=== PATIENT | male | born 1950 | race African-American/Black ===

== ENCOUNTER 2021-05-30 12:28 | Outpatient (REF) | payer SELFPAY ==
[2021-05-30 14:06] LABS: MANUAL DIFF FLAG NO
[2021-05-30 14:22] LABS: Basophils Percent Auto 0.3 % (0-2); Eosinophils Absolute Auto 0.1 X10*3/uL (0.0-0.4); Eosinophils Percent Auto 0.9 % (0-4); Hematocrit 45.1 % (42-52); Hemoglobin 13.2 g/dl (14.0-18.0); Imm Gran Abs Auto 0.01 X10*3/uL (0.00-0.03); Imm Gran Pct Auto 0.2 % (0.0-0.4); Lymphocytes Absolute Auto 3.7 X10*3/uL (1.2-4.9); Lymphocytes Percent Auto 56.3 % (20-40); Mean Corpuscular HGB Conc 29.3 g/dl (31.0-36.0); Mean Corpuscular Hemoglobin 22.6 pg (27.0-33.0); Mean Corpuscular Volume 77.1 fL (80-98); Mean Platelet Volume 11.7 fL (9.4-12.4); Monocytes Absolute Auto 0.6 X10*3/uL (0.1-1.2); Monocytes Percent Auto 8.3 % (2-11); Neutrophils Absolute Auto 2.3 X10*3/uL (2.0-8.3); Platelet Count 231 X10*3/uL (160-400); Red Blood Count 5.85 X10*6/uL (4.60-5.80); White Blood Count 6.6 X10*3/uL (4.8-10.8)
[2021-05-30 14:44] LABS: Creatinine Urine 219.63 mg/dL; Creatinine Urine 219.75 mg/dL; Microalbum/Creatinine Ratio Ur 18.6 ug/mg cr; Protein/Creatinine Ratio, Ur 0.08 (<0.2); Total Protein Urine Random 18 mg/dL (<12)
[2021-05-30 14:46] LABS: Alanine Aminotransferase 25 U/L (0-40); Albumin Level 4.3 g/dL (3.5-5.0); Alkaline Phosphatase 87 U/L (39-117); Anion Gap 13 (12-20); Aspartate Amino Transferase 21 U/L (5-37); Bilirubin Total 0.6 mg/dL (0.0-1.0); Blood Urea Nitrogen 13 mg/dL (9-16); Calcium 10.4 mg/dL (8.4-10.2); Carbon Dioxide 29 mmol/L (22-29); Chloride 103 mmol/L (96-108); Cholesterol 108 mg/dL; Estimated Glomerular Filt Rate 56; Glucose Fasting 104 mg/dL (60-99); HDL Cholesterol 34 mg/dL; LDL Cholesterol Calculated 63 mg/dl; Potassium 3.6 mmol/L (3.3-5.1); Sodium 141 mmol/L (135-145); Total Protein 7.7 g/dL (6.5-8.0); Triglycerides 56 mg/dL
== END 2021-05-30 12:29 | disposition home or self-care (01) ==
LOC: HO.HMGCLDS 12:28
PROVIDERS: Hospitalist; Visit Provider Internal Medicine
DX: E11.65 Type 2 diabetes mellitus with hyperglycemia (principal); I10 Essential (primary) hypertension
CPT/HCPCS: 36415; 80053; 80061; 82043; 84156; 85025

== ENCOUNTER 2022-05-30 10:18 | Outpatient (REF) | payer MEDICAID, SELFPAY ==
[2022-05-30 11:50] LABS: Estimated Average Glucose 209 mg/dL; Hemoglobin A1c % 8.9 %
[2022-05-30 12:00] LABS: Microalbum/Creatinine Ratio Ur 33.8 ug/mg cr
[2022-05-30 12:07] LABS: Alanine Aminotransferase 33 U/L (0-40); Anion Gap 10 (12-20); Aspartate Amino Transferase 21 U/L (5-37); Blood Urea Nitrogen 15 mg/dL (9-16); Carbon Dioxide 26 mmol/L (22-29); Chloride 106 mmol/L (96-108); Cholesterol 124 mg/dL; Estimated Glomerular Filt Rate > 60; Glucose Fasting 91 mg/dL (60-99); HDL Cholesterol 42 mg/dL; LDL Cholesterol Calculated 70 mg/dl; Potassium 4.4 mmol/L (3.3-5.1); Sodium 138 mmol/L (135-145); Triglycerides 62 mg/dL
== END 2022-05-30 10:19 | disposition home or self-care (01) ==
LOC: HO.HMGCLDS 10:18
PROVIDERS: Visit Provider Internal Medicine
DX: I10 Essential (primary) hypertension (principal); E11.65 Type 2 diabetes mellitus with hyperglycemia
CPT/HCPCS: 36415; 80048; 80061; 82043; 83036; 84450; 84460

== ENCOUNTER 2022-07-08 08:15 | Outpatient (REF) | payer MEDICAID, SELFPAY ==
[2022-07-08 11:21] LABS: MANUAL DIFF FLAG NO
[2022-07-08 11:28] LABS: Basophils Percent Auto 0.2 % (0-2); Eosinophils Percent Auto 0.3 % (0-4); Hematocrit 44.7 % (42.0-52.0); Hemoglobin 13.2 g/dl (14.0-18.0); Imm Gran Abs Auto 0.01 X10*3/uL (0.00-0.03); Imm Gran Pct Auto 0.2 % (0.0-0.4); Lymphocytes Percent Auto 46.9 % (20-40); Mean Corpuscular HGB Conc 29.5 g/dl (31.0-36.0); Mean Corpuscular Hemoglobin 22.6 pg (27.0-33.0); Mean Corpuscular Volume 76.5 fL (80.0-98.0); Mean Platelet Volume 12.5 fL (9.4-12.4); Monocytes Absolute Auto 0.4 X10*3/uL (0.1-1.2); Monocytes Percent Auto 6.2 % (2-11); Neutrophils Percent Auto 46.2 % (45-73); Platelet Count 216 X10*3/uL (160-400); Red Blood Count 5.84 X10*6/uL (4.60-5.80); Red Cell Distribution Width 13.7 % (11.0-16.0); White Blood Count 6.5 X10*3/uL (4.8-10.8)
[2022-07-08 11:49] LABS: Estimated Average Glucose 217 mg/dL; Hemoglobin A1c % 9.2 %
[2022-07-08 12:32] LABS: Creatinine Urine 146.97 mg/dL; Microalbum/Creatinine Ratio Ur 12.9 ug/mg cr
[2022-07-08 12:55] LABS: Alanine Aminotransferase 21 U/L (0-40); Albumin Level 4.4 g/dL (3.5-5.0); Alkaline Phosphatase 90 U/L (39-117); Anion Gap 13 (12-20); Aspartate Amino Transferase 19 U/L (5-37); Bilirubin Total 0.5 mg/dL (0.0-1.0); Blood Urea Nitrogen 12 mg/dL (9-16); Calcium 10.7 mg/dL (8.4-10.2); Carbon Dioxide 26 mmol/L (22-29); Chloride 103 mmol/L (96-108); Cholesterol 118 mg/dL; Estimated Glomerular Filt Rate 56; Glucose Fasting 44 mg/dL (60-99); HDL Cholesterol 42 mg/dL; LDL Cholesterol Calculated 69 mg/dl; Potassium 3.8 mmol/L (3.3-5.1); Sodium 138 mmol/L (135-145); Total Protein 7.7 g/dL (6.5-8.0); Triglycerides 35 mg/dL
== END 2022-07-08 08:16 | disposition home or self-care (01) ==
LOC: HO.HMGCLDS 08:15
PROVIDERS: PCP Internal Medicine; Visit Provider Internal Medicine
DX: E11.65 Type 2 diabetes mellitus with hyperglycemia (principal); I10 Essential (primary) hypertension
CPT/HCPCS: 36415; 80053; 80061; 82043; 83036; 85025

== ENCOUNTER 2022-07-09 11:21 | Outpatient (REF) | payer MEDICAID, SELFPAY ==
[2022-07-10 16:13] LABS: Calcium (PTHI) 10.4 mg/dL (8.6-10.3); PTHI 74 pg/mL (16-77)
[2022-07-13 19:48] LABS: Calcium, Ionized 5.4 mg/dL (4.8-5.6)
== END 2022-07-09 11:22 | disposition home or self-care (01) ==
LOC: HO.HMGCLDS 11:21
PROVIDERS: PCP Internal Medicine; Visit Provider Internal Medicine
DX: E83.52 Hypercalcemia (principal)
CPT/HCPCS: 36415; 82330; 83970

== ENCOUNTER → 2022-11-25 08:25 | Outpatient (BNVA) | payer MEDICAID, SELFPAY | PROVIDERS: PCP Internal Medicine; Visit Provider Internal Medicine Endocrinology, Diabetes & Metabolism | DX: E11.65 Type 2 diabetes mellitus with hyperglycemia (principal); Z79.84 Long term (current) use of oral hypoglycemic drugs | CPT/HCPCS: 82947; 99202 ==

== ENCOUNTER 2022-11-27 09:09 | Outpatient (REF) | payer MEDICAID, SELFPAY ==
[2022-11-27 11:12] LABS: MANUAL DIFF FLAG NO
[2022-11-27 11:18] LABS: Basophils Percent Auto 0.2 % (0-2); Eosinophils Percent Auto 0.2 % (0-4); Hematocrit 46.7 % (42.0-52.0); Hemoglobin 13.5 g/dl (14.0-18.0); Imm Gran Abs Auto 0.04 X10*3/uL (0.00-0.03); Imm Gran Pct Auto 0.4 % (0.0-0.4); Lymphocytes Absolute Auto 1.8 X10*3/uL (1.2-4.9); Lymphocytes Percent Auto 19.6 % (20-40); Mean Corpuscular HGB Conc 28.9 g/dl (31.0-36.0); Mean Corpuscular Hemoglobin 22.4 pg (27.0-33.0); Mean Corpuscular Volume 77.3 fL (80.0-98.0); Mean Platelet Volume 11.3 fL (9.4-12.4); Monocytes Absolute Auto 0.5 X10*3/uL (0.1-1.2); Monocytes Percent Auto 5.3 % (2-11); Neutrophils Percent Auto 74.3 % (45-73); Platelet Count 256 X10*3/uL (160-400); Red Blood Count 6.04 X10*6/uL (4.60-5.80); Red Cell Distribution Width 14.4 % (11.0-16.0); White Blood Count 9.4 X10*3/uL (4.8-10.8)
[2022-11-27 13:25] LABS: Alanine Aminotransferase 26 U/L (0-40); Anion Gap 10 (12-20); Aspartate Amino Transferase 20 U/L (5-37); Blood Urea Nitrogen 15 mg/dL (9-16); Calcium 10.9 mg/dL (8.4-10.2); Carbon Dioxide 26 mmol/L (22-29); Chloride 106 mmol/L (96-108); Cholesterol 101 mg/dL; Estimated Glomerular Filt Rate 60; Glucose Fasting 38 mg/dL (60-99); HDL Cholesterol 36 mg/dL; Iron 61 mcg/dL (45-160); LDL Cholesterol Calculated 54 mg/dl; Percent Iron Saturation 20 % (15-50); Potassium 3.7 mmol/L (3.3-5.1); Sodium 138 mmol/L (135-145); Total Iron Binding Capacity 309 mcg/dL (228-428); Triglycerides 59 mg/dL; Unsaturated Iron Binding 248 ug/dL
[2022-11-27 13:38] LABS: PSA,Total (Free>4and<10) 2.24 ng/mL (0.00-4.00); Vitamin D 25-OH Total 18.6 ng/mL (>30)
[2022-11-27 17:24] LABS: Creatinine Urine 109.53 mg/dL
== END 2022-11-27 09:10 | disposition home or self-care (01) ==
LOC: HO.HMGCLDS 09:09
PROVIDERS: PCP Internal Medicine; Visit Provider Internal Medicine
DX: I10 Essential (primary) hypertension (principal); E11.65 Type 2 diabetes mellitus with hyperglycemia; E11.40 Type 2 diabetes mellitus with diabetic neuropathy, unspecified; N52.9 Male erectile dysfunction, unspecified; Z12.5 Encounter for screening for malignant neoplasm of prostate
CPT/HCPCS: 36415; 80048; 80061; 82043; 82306; 83540; 84153; 84450; 84460; 85025

== ENCOUNTER → 2022-12-16 08:57 | Outpatient (BNVA) | payer MEDICAID, SELFPAY | PROVIDERS: PCP Internal Medicine; Visit Provider Dietitian, Registered | DX: E11.65 Type 2 diabetes mellitus with hyperglycemia (principal); Z71.3 Dietary counseling and surveillance | CPT/HCPCS: 97802 ==

== ENCOUNTER 2022-12-23 10:36 | Outpatient (REF) | payer MEDICAID, SELFPAY ==
[2022-12-23 12:14] LABS: Estimated Average Glucose 180 mg/dL; Hemoglobin A1c % 7.9 %
[2022-12-24 11:49] LABS: Calcium (PTHI) 9.9 mg/dL (8.6-10.3); PTHI 87 pg/mL (16-77)
[2022-12-25 15:03] LABS: Calcium, Ionized 5.5 mg/dL (4.8-5.6)
== END 2022-12-23 10:37 | disposition home or self-care (01) ==
LOC: HO.HMGCLDS 10:36
PROVIDERS: PCP Internal Medicine; Visit Provider Internal Medicine
DX: E83.52 Hypercalcemia (principal); E11.40 Type 2 diabetes mellitus with diabetic neuropathy, unspecified; E11.65 Type 2 diabetes mellitus with hyperglycemia; I10 Essential (primary) hypertension
CPT/HCPCS: 36415; 82330; 83036; 83970

== ENCOUNTER 2023-01-29 13:32 | Outpatient (REF) | payer MEDICAID, SELFPAY ==
--- NOTE | 2023-01-29 10:15 | EMG_ITS ---
Right tibial and peroneal motor studies were performed right superficial peroneal, sural and medial lateral plantar sensory studies were performed. Tibial H-reflex was obtained. Needle examination was performed. IMPRESSION: Mild sensory motor chronic peripheral neuropathy. MD DEMETRA Arroyo/YISEL / [id number]
== END 2023-01-29 13:33 | disposition home or self-care (01) ==
LOC: HO.NEURO 13:32
PROVIDERS: PCP Internal Medicine; Visit Provider Internal Medicine
DX: R20.8 Other disturbances of skin sensation (principal)
CPT/HCPCS: 95886; 95910

== ENCOUNTER 2023-02-04 10:23 | Outpatient (REF) | payer MEDICAID, SELFPAY ==
--- NOTE | ~2023-02-04 | US_ITS ---
EXAMINATION: NONINVASIVE ASSESSMENT OF THE ARTERIES OF RIGHT LOWER EXTREMITY Ross Antony MD CLINICAL INFORMATION: Other disturbances of skin sensation TECHNIQUE: Right lower extremity duplex ultrasound was performed with velocity measurements and waveform analysis in the common femoral arteries, profunda femoris arteries, proximal mid and distal superficial femoral arteries, popliteal arteries and tibial vessels. This study was performed only at rest. COMPARISON: None FINDINGS: Velocities in cm/sec and phasicity as well as the presence of plaque are reported below. RIGHT LEG: Minimal plaque is seen with the exception of the tibial vessels were moderate is identified. Multiphasic flow is noted throughout the lower extremity Common Femoral: 104 Profunda Femoris: 61 Proximal SFA: 1:15 Mid SFA: 90 Distal SFA: 70 Popliteal: 74 Tibial: 88 US/US arterial duplex LE RT IMPRESSION: There is no evidence of any hemodynamically significant lower extremity arterial disease by pressure, waveform or duplex Doppler criteria at rest.
--- NOTE | 2023-02-04 11:16 | CA_ITS ---
Transthoracic Echocardiogram Patient (Last, First, Middle): Martin Whittaker O Gender: Male Date of : 1950 Age: 72 Procedure Date: 02/04/2023 Procedure Type: Transthoracic Echocardiogram Location: OP Height: 167.64 cm Weight: 75.3 kg BSA: 1.85 m2 Heart Rate: 88 bpm BP: 175 / 90 mmHg Pharmacy Operations Manager: ROXANN Referring MD: Atiya Joseph MD Embedder: Preston Crowder MD Symptoms: R01.1 - Cardiac murmur, unspecified Study Quality: Adequate ECG Rhythm: Sinus Conclusions: - 1. Normal LV systolic function with moderate LVH with impaired relaxation filling pattern 2. Normal cardiac valvular Doppler 3. Normal RV systolic pressure 4. No gross pericardial effusion Findings Left Ventricle Normal left ventricular size and systolic function. There is moderately increased left ventricular wall thickness. The visually estimated ejection fraction is between 55-60%. Spectral Doppler is indicative of an impaired relaxation filling pattern. E/E prime ratio is between 8 and 15 consistent with indeterminate filling pressures. Peak GLS is -10.9%, which is significantly reduced. Right Ventricle Normal right ventricular cavity size and systolic function. Atria The left atrium is normal in size. Interatrial shunt cannot be excluded. The right atrium is normal in size. Aortic Valve Normal aortic valve structure and function. There is no aortic valve stenosis. There is no aortic valve regurgitation. Mitral Valve Normal mitral valve structure and function. There is trace mitral valve regurgitation. There is no mitral valve stenosis. Pulmonic Valve The pulmonic valve was not well visualized. Tricuspid Valve Normal tricuspid valve structure. There is trace tricuspid valve regurgitation. The right ventricular systolic pressure is normal. The right ventricular systolic pressure is 18 mmHg. Normal right atrial pressure. There is no evidence of pulmonary hypertension. Great Vessels All visible segments of the aorta are normal in size. The pulmonary artery was not well visualized. Venous The inferior vena cava is normal in size and collapses greater than 50% with inspiration. Pericardium/Pleural There is no evidence of pericardial effusion. Prior Study Comparison No prior study available for comparison. Measurements 2D Linear Measurements IVSd: 1.41 0.6-0.9/0.6-1.0 cm LVIDd: 3.42 3.9-5.3/4.2-5.9 cm LVIDd Index: 1.85 2.4-3.2/2.2-3.1 cm/m2 LVIDs: 2.36 2.0-3.6 cm LVPWd: 1.43 0.7-1.1 cm LA Diam: 3.40 2.7-3.8/3.0-4.0 cm LAIDs Index: 1.84 1.5-2.3 cm/m2 LV Mass: 213.53 67-162/88-224 g LV Mass Index: 115.42 43-95/49-115 g/m2 LVOT Diam: 1.90 3.0+(-)1.3 cm 2D Systolic Function EF 4C: 54.20 >55% EF 2C: 60.40 >55% EF BiP: 57.40 >55% Mitral Valve MV Pk E: 0.63 MV PK A: 1.16 MV Decel Time: 320.00 E/A: 0.50 E'Lateral: 5.33 E'Medial: 3.59 E/E' Med: 17.50 E/E' Lat: 11.80 PHT: 94.00 MVA PHT: 2.34 Decel Hart: 1.97 Aortic Valve AoV Pk Pa: 1.44 AoV Mn Pa: 0.99 AoV VTI: 0.23 AoV Pk Grad: 8.00 Aov Mn Grad: 5.00 MERLY Cont.VTI: 2.74 LVOT LVOT Pk Pa: 1.37 LVOT Mn Pa: 0.94 LVOT VTI: 0.23 LVOT Pk Grad: 8.00 LVOT Mn Grad: 4.00 LVOT Diam: 1.90 LVOT Area: 2.84 Diastolic Function MV Pk E: 0.63 MV Pk A: 1.16 E/A: 0.50 E'Medial: 3.59 E/E' Med: 17.50 E' Laterial: 5.33 E/E' Lat: 11.80 Right Ventricle TAPSE (mm): 23.20 TVS' Pa: 15.00 Tricuspid Valve TR Pk Pa: 1.95 TR Pk Grad: 15.00 RA Press: 3.00 RVSP: 18.00 Great Vessels Aorta Sinus of Valsalva: 3.00 2.0-3.5 cm Ao Asc: 3.10 2.1-3.4 cm Pulmonary Valve PV Pk Pa: 1.44 Peak PV Grad: 8.00 Updated in Other Vendor System with Status of Final Preston Crowder MD electronically signed on 02/04/2023 1:41:08 PM with status of Final
== END 2023-02-04 10:24 | disposition home or self-care (01) ==
LOC: HO.US 10:23
PROVIDERS: PCP Internal Medicine; Visit Provider Internal Medicine
DX: R01.1 Cardiac murmur, unspecified (principal); I10 Essential (primary) hypertension; R20.8 Other disturbances of skin sensation
CPT/HCPCS: 93306; 93356; 93926

== ENCOUNTER 2023-02-08 07:03 | Emergency (ER) | payer MEDICAID, SELFPAY ==
--- NOTE | ~2023-02-08 | US_ITS ---
EXAMINATION: US VENOUS ULTRASOUND WITH DOPPLER LOWER EXTREMITY, RIGHT CLINICAL INFORMATION: Pain. COMPARISON: None available. TECHNIQUE: Ultrasound of the deep veins is performed from the hip to the calf with compression sonography and color and pulse Doppler assessment. Spectral analysis with color-flow imaging is performed. FINDINGS: There is normal venous compression and respiratory variation and augmented flow. The visualized common femoral vein, superficial femoral vein, profunda femoral vein, popliteal vein, and the trifurcation region shows no evidence of deep venous thrombosis. There is no significant popliteal fossa cyst. If the patient's symptoms persist, followup ultrasound in 5 days 7 days might be of value to exclude proximal propagation from a non-visualized calf vein. US/US venous duplex LE RT IMPRESSION: No DVT demonstrated in the right lower extremity.
[2023-02-08 07:42] VITALS: BP 185/88; PULSE 96; RESP 16; TEMP 36.8; O2SAT 99; BMI 26.8
--- NOTE | 2023-02-08 08:29 | ED_ITS ---
HPI - Extremity Problem General Chief complaint: Extremity Problem Stated complaint: R leg pain Time Seen by Provider: 02/08/23 08:14 Source: patient Mode of arrival: ambulatory Limitations: no limitations History of Present Illness HPI Narrative: A 72-year-old male came in for evaluation of right lower extremities pain. Pain started 6 weeks ago, no history of trauma injury to the right lower extremities, been evaluated for right lower extremity pain feels heat inside, patient declined any recent travel, no prolonged immobilization, Related Data Previous Rx's Medication Instructions Recorded glipizide 10 mg tablet 10 mg PO BID 30 days #180 tabs 11/06/22 metformin 1,000 mg tablet 1,000 mg PO BID #180 tabs 11/06/22 sitagliptin phosphate 100 mg 100 mg PO DAILY #90 tabs 11/06/22 tablet (Januvia) lisinopril 20 mg tablet 20 mg PO DAILY #90 tabs 11/14/22 amlodipine 5 mg tablet 5 mg PO DAILY #90 tabs 11/28/22 blood sugar diagnostic (FreeStyle #200 ea 12/05/22 Lite Strips) blood-glucose meter (FreeStyle #1 ea 12/05/22 [place] Lite kit) lancets 28 gauge (FreeStyle #200 ea 12/05/22 Lancets) blood pressure test kit-medium #1 ea 01/15/23 gabapentin 300 mg capsule 300 mg PO Q8H #90 caps 01/20/23 oxycodone 5 mg tablet 5 mg PO Q8H PRN pain #10 tabs 02/08/23 Allergies Allergy/AdvReac Type Severity Reaction Status Date / Time No Known Allergies Allergy Verified 12/23/22 10:19 Review of Systems Review of Systems: All other systems are reviewed and are negative Constitutional: Reports as per HPI and Reports no additional constitutional complaints Eyes: Reports as per HPI and Reports no additional eye complaints Reports system reviewed and no additional complaints, except as documented Cardiovascular: Reports as per HPI and Reports no additional cardiovascular complaints Respiratory: Reports as per HPI and Reports no additional respiratory complaints Gastrointestinal: Reports as per HPI and Reports no additional gastrointestinal complaints Genitourinary: Reports no additional female genitourinary complaints Musculoskeletal: Reports no additional musculoskeletal complaints Skin/Breast: Reports system reviewed and no additional complaints, except as docu Psychiatric: Reports no additional psychiatric complaints Endocrine: Reports no additional endocrine complaints Hematologic/Lymphatic: Reports no additional hematologic/lymphatic complaints Allergic/Immunologic: Reports no additional allergic/immunologic complaints Reports system reviewed and no additional complaints, except as documented and Reports Abnormal speech present [facility] Past Medical History Medical History Burning sensation of toe and foot Diabetes mellitus with hyperglycemia, without long-term current use of insulin Essential hypertension Hypercalcemia Normocalcemic primary hyperparathyroidism Severe uncontrolled hypertension Type 2 diabetes mellitus without complication, with no history of insulin use Surgical History No pertinent past surgical history Social History Social History Housing: Apartment Alcohol intake: never Patient Tobacco Use Status: Never used Tobacco e-Cigarette/Vaping Use: Never Used Second Hand Smoke Exposure: No Advance Directives: No Advance Directives Information Provided: No service: No Current occupational status: employed Cognitive needs: No Hearing needs: No Vision needs: No Physical Exam Vital Signs: Vital Signs: Last Vital Signs Temp 98.2 F 02/08/23 07:42 Pulse 96 02/08/23 07:42 Resp 16 02/08/23 07:42 BP 185/88 H 02/08/23 07:42 Pulse Ox 99 02/08/23 07:42 O2 Del Method Room Air 02/08/23 07:42 BMI result Body Mass Index 26.8 Vital signs have been reviewed as appeared to be correct. Blood pressure normal. Heart rate normal. Respiration rate normal. Temperature normal. Ox ygen saturation normal. Appearance: Alert. Oriented X3. No acute distress. Head: Normal external exam. Normocephalic. Atraumatic. No Morales signs noted. No raccoon eyes noted Eyes: PERRLA. EOMI. Conjunctiva and sclera normal. Eyelids normal. ENT: TM's Normal. Pharynx normal. Uvula midline. Moist mucous membranes. No trismus noted. No drooling noted. No muffled voice noted. Neck: Normal inspection. Neck supple. FROM. No adenopathy. Thyroid Normal. No meningeal signs. No neck mass noted. CVS: Normal heart rate and rhythm. Heart sound normal. No murmurs noted. Pulses normal throughout. Respiratory: No respiratory distress. Painless inspiration. Breath sounds normal. No wheezes/rales/rhonchi noted. Chest nontender. No accessory muscle usage noted or decreased air movement noted. Abdomen: Soft and nontender. Bowel sounds normal in all 4 quadrants. No di stention noted. No organomegaly noted. No visible injury noted. Back: No CVA tenderness. Full range of motion noted. Skin: Skin warm and dry. Normal skin color. Normal skin turgor. No rashes/le sions/lacerations noted. Extremities: Neurovascular exam is intact with a good pulse on the right PT/DP artery pulsation with cap refill less than 3 seconds no skin discoloration or ischemic change per Neuro: Oriented X 3. Cranial nerve exam: II-XII are grossly intact No motor deficit. No sensory deficit. Reflexes normal. Course Course Course Narrative: A 72-year-old male with a month and a half of right lower extremities abdominal pain, patient had arterial ultrasound done as a workup which is unremarkable, but today's venous ultrasound is negative for DVT. Patient feels better after was given oxycodone will discharge the patient on oxycodone. Medical Decision Making Differential Diagnosis Differential Diagnoses: The differential diagnosis associated with the presentation includes (Myofascial pain syndrome, DVT, acute arterial insufficiency with ischemia.) Lab Data MDM Lab Attestation statement: I reviewed the patient's lab results. 02/08/23 08:56 Labs: Lab Results 02/08/23 Range/Units 08:56 WBC 4.9 (4.8-10.8) X10*3/uL RBC 5.95 H (4.60-5.80) X10*6/uL Hgb 13.5 L (14.0-18.0) g/dl Hct 45.4 (42.0-52.0) % MCV 76.3 L (80.0-98.0) fL MCH 22.7 L (27.0-33.0) pg MCHC 29.7 L (31.0-36.0) g/dl RDW 13.8 (11.0-16.0) % Plt Count 213 (160-400) X10*3/uL MPV 9.9 (9.4-12.4) fL Immature Gran % (Auto) 0.2 (0.0-0.4) % Neut % (Auto) 43.5 L (45-73) % Lymph % (Auto) 45.1 H (20-40) % Garden % (Auto) 9.0 (2-11) % Eos % (Auto) 1.8 (0-4) % Baso % (Auto) 0.4 (0-2) % Lymph # (Auto) 2.2 (1.2-4.9) X10*3/uL [place] # (Auto) 0.4 (0.1-1.2) X10*3/uL Eos # (Auto) 0.1 (0.0-0.4) X10*3/uL Baso # (Auto) 0.0 (0.0-0.2) X10*3/uL Abs Immat Gran (auto) 0.01 (0.00-0.03) X10*3/uL Absolute Neuts (auto) 2.1 (2.0-8.3) x10*3/uL Absolute Nucleated RBC 0.000 (0.0-0.012) X10*3/uL Nucleated RBC % (auto) 0.0 (0.0-0.2) /100WBC Independent Interpretation I performed an independent interpretation of an: Ultrasound (Right lower extremity: No DVT.) Radiology Impression Discussion of test interpretation with radiology: I have reviewed the radiologist's reading. Discharge Plan Discharge Clinical Impression: Lower extremity pain Patient Disposition: Home, Self-Care Instructions: Leg Pain (ED) Prescriptions: New oxycodone 5 mg tablet 5 mg PO Q8H PRN (Reason: pain) Qty: 10 0RF Rx Instructions: Partial Fill upon patient request. No Action (DME) blood-glucose meter [FreeStyle [place] Lite] Kit See Rx Instructions .ROUTE .MEDSUPPLY Qty: 1 0RF Rx Instructions: Check fasting blood sugar in a.m. before breakfast and at night before supper time (DME) lancets [FreeStyle Lancets] 28 gauge misc See Rx Instructions .ROUTE .MEDSUPPLY Qty: 200 3RF Rx Instructions: Use as directed to check blood sugar twice a day before meals (DME) FreeStyle Lite Strips Strip See Rx Instructions .ROUTE .MEDSUPPLY Qty: 200 3RF Rx Instructions: check blood sugar in am and pm before eating (DME) blood pressure test kit-medium Kit See Rx Instructions .Route Qty: 1 0RF Rx Instructions: As directed to monitor BP at home gabapentin 300 mg capsule 300 mg PO Q8H Qty: 90 1RF metformin 1,000 mg tablet 1,000 mg PO BID Qty: 180 3RF glipizide 10 mg tablet 10 mg PO BID 30 Days Qty: 180 3RF Januvia 100 mg tablet 100 mg PO DAILY Qty: 90 1RF lisinopril 20 mg tablet 20 mg PO DAILY Qty: 90 1RF amlodipine 5 mg tablet 5 mg PO DAILY Qty: 90 1RF Rx Instructions: take in afternoon at around 3 pm Referrals: Atiya Joseph MD [Primary Care Provider] -
[2023-02-08 09:02] LABS: MANUAL DIFF FLAG NO
[2023-02-08 09:04] LABS: Basophils Percent Auto 0.4 % (0-2); Eosinophils Absolute Auto 0.1 X10*3/uL (0.0-0.4); Eosinophils Percent Auto 1.8 % (0-4); Hematocrit 45.4 % (42.0-52.0); Hemoglobin 13.5 g/dl (14.0-18.0); Imm Gran Abs Auto 0.01 X10*3/uL (0.00-0.03); Imm Gran Pct Auto 0.2 % (0.0-0.4); Lymphocytes Absolute Auto 2.2 X10*3/uL (1.2-4.9); Lymphocytes Percent Auto 45.1 % (20-40); Mean Corpuscular HGB Conc 29.7 g/dl (31.0-36.0); Mean Corpuscular Hemoglobin 22.7 pg (27.0-33.0); Mean Corpuscular Volume 76.3 fL (80.0-98.0); Mean Platelet Volume 9.9 fL (9.4-12.4); Monocytes Absolute Auto 0.4 X10*3/uL (0.1-1.2); Neutrophils Absolute Auto 2.1 x10*3/uL (2.0-8.3); Neutrophils Percent Auto 43.5 % (45-73); Platelet Count 213 X10*3/uL (160-400); Red Blood Count 5.95 X10*6/uL (4.60-5.80); Red Cell Distribution Width 13.8 % (11.0-16.0); White Blood Count 4.9 X10*3/uL (4.8-10.8)
[2023-02-08 10:33] VITALS: BP 182/96; PULSE 78; RESP 16; O2SAT 97
== END 2023-02-08 10:37 | disposition home or self-care (01) ==
PROVIDERS: Emergency Provider Emergency Medicine; PCP Internal Medicine
DX: M79.604 Pain in right leg (principal); R60.0 Localized edema; Z79.899 Other long term (current) drug therapy
CPT/HCPCS: 36415; 85025; 93971; 99283

== ENCOUNTER 2023-02-23 08:13 | Outpatient (REF) | payer MEDICAID, SELFPAY ==
[2023-02-23 12:13] LABS: Vitamin D 25-OH Total 20.2 ng/mL (>30)
[2023-02-25 13:48] LABS: Calcium (PTHI) 10.5 mg/dL (8.6-10.3); PTHI 73 pg/mL (16-77)
== END 2023-02-23 08:14 | disposition home or self-care (01) ==
LOC: HO.HMGCLDS 08:13
PROVIDERS: PCP Internal Medicine; Visit Provider Internal Medicine Endocrinology, Diabetes & Metabolism
DX: E21.0 Primary hyperparathyroidism (principal)
CPT/HCPCS: 36415; 82306; 83970

== ENCOUNTER → 2023-02-24 09:47 | Outpatient (BNVA) | payer MEDICAID, SELFPAY | PROVIDERS: PCP Internal Medicine; Visit Provider Dietitian, Registered | DX: E11.65 Type 2 diabetes mellitus with hyperglycemia (principal) | CPT/HCPCS: 97803 ==

== ENCOUNTER → 2023-02-27 08:30 | Outpatient (BNVA) | payer MEDICAID, SELFPAY | PROVIDERS: PCP Internal Medicine; Visit Provider Internal Medicine Endocrinology, Diabetes & Metabolism | DX: E21.0 Primary hyperparathyroidism (principal); E11.9 Type 2 diabetes mellitus without complications | CPT/HCPCS: 82947; 99212 ==

== ENCOUNTER 2023-03-07 15:43 | Emergency (ER) | payer MEDICAID, SELFPAY ==
[2023-03-07 15:52] VITALS: BP 184/88; PULSE 96; RESP 18; TEMP 36.6; O2SAT 100; BMI 26.8
--- NOTE | 2023-03-07 15:55 | ED.GENADULT ---
HPI - General Adult General Chief complaint: Eye Problems <Alvaro Johnson - Last Filed: 03/07/23 15:56> Stated complaint: eye problem, meds arent working <Alvaro Johnson - Last Filed: 03/07/23 15:56> Time Seen by Provider: 03/07/23 16:09 <Alvaro Johnson - Last Filed: 03/07/23 15:56> History of Present Illness HPI narrative: Patient complains of scratchy irritated feeling in both eyes for 1 week, he thinks he got some dust blown in his eyes about a week ago went to his doctor was given Polytrim drops for possible pinkeye and they have not helped He has no eye pain no photophobia no vision change or loss, he has no yellow discharge coming from the eye but the ice to feel irritated and scratchy <AZAEL Velasquez - Last Filed: 03/07/23 17:01> Related Data Home medications: Previous Rx's Medication Instructions Recorded glipizide 10 mg tablet 10 mg PO BID 30 days #180 tabs 11/06/22 metformin 1,000 mg tablet 1,000 mg PO BID #180 tabs 11/06/22 sitagliptin phosphate 100 mg 100 mg PO DAILY #90 tabs 11/06/22 tablet (Januvia) lisinopril 20 mg tablet 20 mg PO DAILY #90 tabs 11/14/22 blood sugar diagnostic (FreeStyle #200 ea 12/05/22 Lite Strips) blood-glucose meter (FreeStyle #1 ea 12/05/22 [place] Lite kit) lancets 28 gauge (FreeStyle #200 ea 12/05/22 Lancets) blood pressure test kit-medium #1 ea 01/15/23 gabapentin 300 mg capsule 300 mg PO Q8H #90 caps 01/20/23 amlodipine 10 mg tablet 10 mg PO DAILY #90 tabs 02/23/23 cholecalciferol (vitamin D3) 50 50 mcg PO DAILY #30 caps 02/23/23 mcg (2,000 unit) capsule polymyxin B sulfate 10,000 1 drp ophthalmic (eye) Q3H 7 days 02/23/23 unit-trimethoprim 1 mg/mL eye #10 mL drops (Polytrim) cetirizine 10 mg tablet 10 mg PO DAILY PRN allergy 03/07/23 symptoms #14 tabs ketotifen fumarate 0.025 % (0.035 1 drp ophthalmic (eye) BID PRN 03/07/23 %) eye drops (Zaditor) allergy symptoms #5 mL <Alvaro Johnson - Last Filed: 03/07/23 15:56> Allergies/adverse reactions: Allergies Allergy/AdvReac Type Severity Reaction Status Date / Time No Known Allergies Allergy Verified 03/07/23 15:52 <Alvaro Johnson - Last Filed: 03/07/23 15:56> [facility] Past Medical History Source: nursing notes reviewed <AZAEL Velasquez - Last Filed: 03/07/23 17:01> Medical History: Medical History (Updated 03/07/23 @ 16:53 by AZAEL Velasquez) Burning sensation of toe and foot Diabetes mellitus with hyperglycemia, without long-term current use of insulin Essential hypertension Hypercalcemia Normocalcemic primary hyperparathyroidism Peripheral neuropathy Severe uncontrolled hypertension Type 2 diabetes mellitus without complication, with no history of insulin use <Alvaro Johnson - Last Filed: 03/07/23 15:56> Surgical History: Surgical History No pertinent past surgical history <Alvaro Johnson - Last Filed: 03/07/23 15:56> Social History Social History: Social History Housing: Apartment Alcohol intake: never Patient Tobacco Use Status: Never used Tobacco e-Cigarette/Vaping Use: Never Used Second Hand Smoke Exposure: No Advance Directives: No Advance Directives Information Provided: No service: No Current occupational status: employed Cognitive needs: No Hearing needs: No Vision needs: No <Alvaro Johnson - Last Filed: 03/07/23 15:56> Physical Exam ED Vital Signs: Vital Signs - 24 hr 03/07/23 15:52 Temperature 97.9 F Pulse Rate 96 Respiratory Rate 18 Blood Pressure 184/88 H Pulse Oximetry 100 Oxygen Delivery Method Room Air BMI result Body Mass Index 26.8 <Alvaro Johnson - Last Filed: 03/07/23 15:56> Vital Signs - 24 hr 03/07/23 15:52 Temperature 97.9 F Pulse Rate 96 Respiratory Rate 18 Blood Pressure 184/88 H Pulse Oximetry 100 Oxygen Delivery Method Room Air BMI result Body Mass Index 26.8 <AZAEL Velasquez - Last Filed: 03/07/23 17:01> General appearance no distress The eyes are both mildly injected but there is no discharge from the eyes, conjunctiva are mildly red There is some puffiness below the eyes Pupils equal round reactive to light and extraocular motions are intact Visual acuity is 2025 left eye and 20 30 right eye Staining with fluorescein did not reveal any dye uptake in either eye Upper lids were flipped up with no evidence of any foreign body Pharynx is clear neck is supple respiratory no distress Skin no rashes <AZAEL Velasquez - Last Filed: 03/07/23 17:01> Course Course Course Narrative: This 72-year-old male presents for evaluation of ?I think there is something in my right eye. ? He reports he was already seen by his doctor for this and was prescribed polymyxin B with trimethoprim. No obvious foreign body on exam <Alvaro Johnson - Last Filed: 03/07/23 15:56> This 72-year-old male presents for evaluation of ?I think there is something in my right eye. ? He reports he was already seen by his doctor for this and was prescribed polymyxin B with trimethoprim. No obvious foreign body on exam Patient's main complaint seemed to be and irritation did and scratchy feeling in both eyes, he does not have any discharge so I discontinued the pinkeye medication On exam there were no acute findings visual acuity was good and there was no evidence of foreign body or abrasion, there is no significant dye pain Patient is treated for possible allergic conjunctivitis with eyedrops and cetirizine If that does not help he will follow with eye doctor <AZAEL Velasquez - Last Filed: 03/07/23 17:01> Medications Administered Discontinued Medications Generic Name Dose Route Start Last Admin Trade Name Hilda PRN Reason Stop Dose Admin Fluorescein Sodium 1 strip 03/07/23 16:24 03/07/23 16:26 Fluorescein Sodium Strip EYE-BOTH 03/07/23 16:25 1 strip ONCE ONE Administration Tetracaine HCl 1 drop 03/07/23 16:23 03/07/23 16:26 Tetracaine Hcl/Pf 0.5% Oph Michelle 4 Ml Drops EYE-LEFT 03/07/23 16:24 1 drop ONCE ONE Administration <Alvaro DiazCabreray - Last Filed: 03/07/23 15:56> Medications Administered Discontinued Medications Generic Name Dose Route Start Last Admin Trade Name Hilda PRN Reason Stop Dose Admin Fluorescein Sodium 1 strip 03/07/23 16:24 03/07/23 16:26 Fluorescein Sodium Strip EYE-BOTH 03/07/23 16:25 1 strip ONCE ONE Administration Tetracaine HCl 1 drop 03/07/23 16:23 03/07/23 16:26 Tetracaine Hcl/Pf 0.5% Oph Michelle 4 Ml Drops EYE-LEFT 03/07/23 16:24 1 drop ONCE ONE Administration <AZAEL Velasquez - Last Filed: 03/07/23 17:01> Discharge Plan Discharge Clinical Impression: Allergic conjunctivitis <Alvaro Johnson - Last Filed: 03/07/23 15:56> Patient Disposition: Home, Self-Care <Alvaro Schradery - Last Filed: 03/07/23 15:56> Additional Instructions: On exam there is no sign of infection or foreign body or scratch to the eye, your vision was good We are treating for possible irritation or allergy with eyedrops and an allergy medicine which may help with itching in the eyes and the redness in the eyes If this treatment does not work follow with the eye doctor Return any time for vision loss eye pain any worse condition or any concerns The Polytrim drops are no longer needed so you do not have to continue <Alvaro Schradery - Last Filed: 03/07/23 15:56> Prescriptions: New cetirizine 10 mg tablet 10 mg PO DAILY PRN (Reason: allergy symptoms) Qty: 14 0RF ketotifen fumarate [Zaditor] 0.025 % (0.035 %) drops 1 drp ophthalmic (eye) BID PRN (Reason: allergy symptoms) Qty: 5 0RF Rx Instructions: administer at least 8 hours apart No Action (DME) blood-glucose meter [FreeStyle [place] Lite] Kit See Rx Instructions .ROUTE .MEDSUPPLY Qty: 1 0RF Rx Instructions: Check fasting blood sugar in a.m. before breakfast and at night before supper time (DME) lancets [FreeStyle Lancets] 28 gauge misc See Rx Instructions .ROUTE .MEDSUPPLY Qty: 200 3RF Rx Instructions: Use as directed to check blood sugar twice a day before meals (DME) FreeStyle Lite Strips Strip See Rx Instructions .ROUTE .MEDSUPPLY Qty: 200 3RF Rx Instructions: check blood sugar in am and pm before eating (DME) blood pressure test kit-medium Kit See Rx Instructions .Route Qty: 1 0RF Rx Instructions: As directed to monitor BP at home gabapentin 300 mg capsule 300 mg PO Q8H Qty: 90 1RF cholecalciferol (vitamin D3) 50 mcg (2,000 unit) capsule 50 mcg PO DAILY Qty: 30 5RF metformin 1,000 mg tablet 1,000 mg PO BID Qty: 180 3RF glipizide 10 mg tablet 10 mg PO BID 30 Days Qty: 180 3RF Januvia 100 mg tablet 100 mg PO DAILY Qty: 90 1RF lisinopril 20 mg tablet 20 mg PO DAILY Qty: 90 1RF amlodipine 10 mg tablet 10 mg PO DAILY Qty: 90 1RF Rx Instructions: take in afternoon at around 3 pm polymyxin B sulf-trimethoprim [Polytrim] 10,000 unit- 1 mg/mL drops 1 drp ophthalmic (eye) Q3H 7 Days Qty: 10 0RF Rx Instructions: while awake; do not exceed 6 doses in 24 hours <Alvaro Johnson - Last Filed: 03/07/23 15:56>
[2023-03-07] MEDS: Tetracaine HCl/PF 0.5% Oph Sol 4 ML DROPS 1 DROP EYE-LEFT (16:26)
[2023-03-07] MEDS: Fluorescein Sodium STRIP 1 STRIP EYE-BOTH (16:26)
== END 2023-03-07 17:07 | disposition home or self-care (01) ==
PROVIDERS: Emergency Provider Emergency Medicine
DX: H10.13 Acute atopic conjunctivitis, bilateral (principal); E11.9 Type 2 diabetes mellitus without complications; I10 Essential (primary) hypertension
CPT/HCPCS: 99283

== ENCOUNTER 2024-01-20 10:56 | Outpatient (AMB) | payer MEDICAID, SELFPAY ==
[2024-01-20 10:59] VITALS: BP 142/84; PULSE 68; O2SAT 100; BMI 27.1
--- NOTE | 2024-01-20 10:59 | AM.OFFWIN_ITS ---
Intake Vital Signs 01/20/24 10:59 Height 5 ft 6 in Weight 168 lb 2 oz BMI 27.1 BP 142/84 H Blood Pressure Location Rt brachial Position Sitting Pulse 68 Pulse Source Pulse Oximeter Pulse Oximetry (%) 100 Oxygen Delivery Method Room Air Intake Visit Reasons: EST/ having trouble using the restroom(lobby) Intake Note: Pt is here c/o being all out of his medications. Pt also has c/o not being able to use the bathroom for three days. Patient Tobacco Use Status: Never used Tobacco Allergies No Known Allergies Allergy (Verified 01/20/24 11:00) Do you need a note to return to daycare/school/sports/work: No HPI HPI Comments History of Present Illness Details 73 y/o male patient who presents to walk in clinic with c/o const ipation. Pt reports that he has not had BM x 3 days. Reports bloating. Denies diarrhea, fevers, chills, nausea or vomiting. [facility] Medical History (Updated 03/08/23 @ 00:12 by Samira Terry) Peripheral neuropathy Normocalcemic primary hyperparathyroidism Severe uncontrolled hypertension Burning sensation of toe and foot Type 2 diabetes mellitus without complication, with no history of insulin use Hypercalcemia Essential hypertension Diabetes mellitus with hyperglycemia, without long-term current use of insulin Surgical History No pertinent past surgical history Social History Housing: Apartment Alcohol intake: never Patient Tobacco Use Status: Never used Tobacco e-Cigarette/Vaping Use: Never Used Second Hand Smoke Exposure: No service: No Current occupational status: employed Cognitive needs: No Hearing needs: No Vision needs: No Review of Systems Const All systems reviewed & are unremarkable except as noted in HPI and below Physical Exam Vital Signs: Last Vital Signs Pulse 68 01/20/24 10:59 BP 142/84 H 01/20/24 10:59 Pulse Ox 100 01/20/24 10:59 Oxygen Delivery Method Room Air 01/20/24 10:59 BMI result Body Mass Index 27.1 Const General: comfortable and no acute distress Nutritional Appearance: overweight Orientation/consciousness: patient oriented x3 GI Inspection: Yes other (large, round and obese) Palpation (GI): Soft to palpation, nontender, no guarding, not rigid, No hepatosplenomegaly present, no hernias and no masses Auscultation: normal bowel sounds Rectal Exam - Male: Yes deferred Neuro General: patient oriented x3 Gait exam (Neuro): Normal gait present Psych Speech and movement: Normal speech and movement present Assessment & Plan Assessment & Plan (1) Constipation: Code(s): K59.00 - Constipation, unspecified Qualifiers: Constipation type: slow transit constipation Qualified Code(s): K59.01 - Slow transit constipation Plan: - Increase Fiber in diet -increase water intake - Routine exercise Medications: New docusate sodium (Colace) 100 mg PO BID 60 caps 0RF K59.01 - Slow transit constipation sennosides (senna) 17.2 mg (2 x 8.6 mg) PO DAILY 30 caps 0RF K59.01 - Slow transit constipation Coding Level of Care Code Est Pt Level 3 (90562) Diagnoses Slow transit constipation K59.01 Constipation type: slow transit constipation Time Spent (min) 15
== END 2024-01-20 11:54 | disposition home or self-care (01) ==
PROVIDERS: Visit Provider Nurse Practitioner Family
DX: K59.01 Slow transit constipation (principal)
CPT/HCPCS: 99213

== ENCOUNTER 2024-01-27 10:56 | Outpatient (AMB) | payer MEDICAID, SELFPAY ==
--- NOTE | 2024-01-27 12:08 | A.OFFPC_ITS ---
Vital Signs 01/27/24 12:12 Height 5 ft 6 in Weight 169 lb BMI 27.3 BP 140/90 H Blood Pressure Location Rt brachial Position Sitting Pulse 85 Pulse Source Pulse Oximeter Pulse Oximetry (%) 99 Oxygen Delivery Method Room Air Intake Visit Reasons: follow up overdue Intake Note: Pt is here to f/u on health issues. Pt is overdue for appointment. Allergies No Known Allergies Allergy (Verified 01/27/24 12:34) Medication List - Last Reconciled 01/27/24 by Atiya Joseph MD amlodipine 10 mg PO DAILY blood pressure test kit-medium As directed to monitor BP at home blood sugar diagnostic (FreeStyle Lite Strips) check blood sugar in am and pm before eating blood-glucose meter (FreeStyle [place] Lite kit) Check fasting blood sugar in a.m. before breakfast and at night before supper time cetirizine 10 mg PO DAILY PRN cholecalciferol (vitamin D3) 50 mcg PO DAILY docusate sodium (Colace) 100 mg PO BID gabapentin 300 mg PO Q8H glipizide 10 mg PO BID 30 days ketotifen fumarate 0.025%(0.035%) (Zaditor) 1 drp ophthalmic (eye) BID PRN lancets (FreeStyle Lancets) Use as directed to check blood sugar twice a day before meals lisinopril 20 mg PO DAILY metformin 1,000 mg PO BID polymyxin B sulf-trimethoprim 10,000 unit- 1 mg/mL (Polytrim) 1 drp ophthalmic (eye) Q3H 7 days sennosides (senna) 17.2 mg (2 x 8.6 mg) PO DAILY sitagliptin phosphate (Januvia) 100 mg PO DAILY Tobacco use date assessed: 01/27/24 Fall risk assessment: No Falls in past year Last assessed Fall Risk: 01/27/24 Dental Screening Did you have a dental visit in the last 12 months?: Yes Did you have a dental problem in the last 6 months where you did not have access to dental care?: No Was dental information given to patient?: Patient has dentist HPI follow up overdue HPI Details 73-year-old male with diabetes mellitus with peripheral neuropathy, history of normocalcemic primary hyperparathyroidism followed by Dr. Wall, and hypertension, here today for his follow-up. [place] been in [place] the country, travels to [place] frequently. He has been taking his medications as directed, compliant with diet and has been exercising regularly, stays active. He has not had his eyes checked for quite some time now, but otherwise feels well, except for occasional bouts of constipation.. He is overdue for a recheck on his labs. [facility] Medical History (Updated 02/01/24 @ 00:19 by Atiya Joseph MD) Peripheral neuropathy Normocalcemic primary hyperparathyroidism Burning sensation of toe and foot Essential hypertension Diabetes mellitus with hyperglycemia, without long-term current use of insulin Surgical History No pertinent past surgical history Social History Housing: Apartment Alcohol intake: never Patient Tobacco Use Status: Never used Tobacco e-Cigarette/Vaping Use: Never Used Second Hand Smoke Exposure: No service: No Current occupational status: employed Cognitive needs: No Hearing needs: No Vision needs: No Questionnaire PHQ-9 Over the last 2 weeks, how often have you been bothered by any of the following problems? Depression Screening Interpretation: Negative Depression Screening Done: Yes Source: Developed by Drs. Mark Nichols, Eloisa Campos, Dalton Mcbride and colleagues, with an educational oswald from [employer] Thrive Questionnaire Date Thrive assessed: 12/23/22 AUDIT C Alcohol Use Questionnaire (AUDIT-C) 1. How often do you have a drink containing alcohol?: Never 3. How often do you have six or more drinks on one occasion?: Never Total Score: 0 LUZMARIA-7 AMB Questionnaire LUZMARIA-7 Date LUZMARIA - 7 assessed: 12/23/22 Source: Developed by Drs. Mark Nichols, Eloisa Campos, Dalton Mcbride and colleagues, with an educational oswald from [employer] Review of Systems Const Denies body aches, Denies fatigue, Denies fever(s) and Denies weakness Eyes Reports blurry vision and Reports requires corrective lenses (For reading) ENT Denies dizziness, Denies nasal congestion, Denies nasal discharge and Denies sore throat Card Denies palpitations Resp Denies chest congestion and Denies cough GI Denies abdominal pain and Denies heartburn Denies hematuria, Denies difficulty urinating, Denies dysuria, Denies urinary frequency and Denies urinary urgency Musc Reports no additional complaints Skin/Breast Denies rash Neuro Denies dizziness, Reports paresthesias (Lower extremities) and Denies weakness Endo Denies fatigue, Denies polydipsia, Denies polyuria and Denies palpitations Ash/Lymph Denies easy bruising Physical exam (Primary Care) Vital Signs: Last Vital Signs Pulse 85 01/27/24 12:12 BP 140/90 H 01/27/24 12:12 Pulse Ox 99 01/27/24 12:12 Oxygen Delivery Method Room Air 01/27/24 12:12 BMI result Body Mass Index 27.3 Tobacco/Smoking Status: Tobacco use Status Tobacco use date assessed 01/27/24 01/27/24 12:16 Patient Tobacco Use Status Never used Tobacco 01/27/24 12:16 e-Cigarette/Vaping Use Never Used 01/27/24 12:16 Depression Screening Interpretation: Negative Thrive Assessment: Date of Thrive Assessment Date Thrive assessed 12/23/22 01/27/24 12:16 Const General: cooperative, comfortable and no acute distress Orientation/consciousness: patient oriented x3 HENMT Ears: external ears normal General nose exam: Normal external nose present and No nasal discharge present Mouth: Normal oral and palatal mucosa present and moist mucous membranes Eyes General: appearance normal, both eyes and all related structures Neck Neck: Yes full ROM, Yes no lymphadenopathy and Yes supple Resp Effort & Inspection: normal respiratory effort and able to speak in complete sentences Auscultation: clear to auscultation bilaterally Cardio Rate: regular rate Rhythm: regular rhythm Heart sounds: S1 normal heart sound present and S2 normal heart sound present Peripheral pulses: Peripheral pulses 2+ throughout GI Inspection: Yes normal to inspection Palpation (GI): Soft to palpation, nontender and no masses Auscultation: normal bowel sounds Male General Exam: Yes normal external exam Skin General skin exam: no rashes or lesions noted and dry skin Neuro General: patient oriented x3, gait normal, tone normal, moves all extremities, Normal light touch and pain sensation, no focal motor deficits and decrease sensation to monofilament Extrem General: Yes full ROM, Yes no joint enlargement, Yes no pedal edema and Yes normal gait Assessment and Plan Assessment & Plan (1) Essential hypertension: Code(s): I10 - Essential (primary) hypertension Plan: Blood pressure mildly elevated on this visit at 140/90. Continue amlodipine 10 mg daily and lisinopril 20 mg daily. Reinforced importance of following a low- salt diet getting regular exercise. Compressive metabolic panel ordered today (2) Diabetes mellitus with hyperglycemia, without long-term current use of insulin: Code(s): E11.65 - Type 2 diabetes mellitus with hyperglycemia Qualifiers: Diabetes mellitus type: type 2 Qualified Code(s): E11.65 - Type 2 diabetes mellitus with hyperglycemia Plan: Will continue on sitagliptin 100 mg daily, metformin a 1000 mg 1 tablet twice a day, continue checking blood sugar at least once a day and keeping a log of the readings for review on next visit. Stressed importance of make an appointment for his yearly diabetes eye exam. Reinforced importance of following healthy diet and getting regular exercise. Labs ordered to take to check hemoglobin A1c, compressive metabolic panel, urine for microalbumin her screening, fasting lipids and vitamin-D level (3) Peripheral neuropathy: Code(s): G62.9 - Polyneuropathy, unspecified Qualifiers: Peripheral neuropathy type: polyneuropathy, unspecified Qualified Code(s): G62.9 - Polyneuropathy, unspecified Plan: Currently on gabapentin 200 mg every 8 hours (4) Normocalcemic primary hyperparathyroidism: Code(s): E21.0 - Primary hyperparathyroidism Plan: Patient advised to follow up and schedule appointment with Dr. Wall, who he has seen last year, reminded patient that he has labs ordered by Dr. Wall yet to be done (5) Constipation: Code(s): K59.00 - Constipation, unspecified Qualifiers: Constipation type: unspecified constipation type Qualified Code(s): K59.00 - Constipation, unspecified Plan: Prescription sent for Arcelia Cordova to take as directed. Advised to stay well- hydrated Orders: Orders Hemoglobin A1c 01/27/24 E11.65 - Type 2 diabetes mellitus with hyperglycemia, G62.9 - Polyneuropathy, unspecified, I10 - Essential (primary) hypertension PSA,Total (Free>4and<10) 01/27/24 E11.65 - Type 2 diabetes mellitus with hyperglycemia, G62.9 - Polyneuropathy, unspecified, I10 - Essential (primary) hypertension Complete Blood Count Auto Diff 01/27/24 E11.65 - Type 2 diabetes mellitus with hyperglycemia, G62.9 - Polyneuropathy, unspecified, I10 - Essential (primary) hypertension Comprehensive [place]. Panel Fast 01/27/24 E11.65 - Type 2 diabetes mellitus with hyperglycemia, G62.9 - Polyneuropathy, unspecified, I10 - Essential (primary) hypertension Microalbumin, Random (w Creat) 01/27/24 - Type 2 diabetes mellitus with hyperglycemia, G62.9 - Polyneuropathy, unspecified, I10 - Essential (primary) hypertension Vitamin D 25-OH Total 01/27/24. - Type 2 diabetes mellitus with hyperglycemia, G62.9 - Polyneuropathy, unspecified, I10 - Essential (primary) hypertension Lipid Panel 01/27/24. - Type 2 diabetes mellitus with hyperglycemia, G62.9 - Polyneuropathy, unspecified, I10 - Essential (primary) hypertension Medications: New sennosides-docusate sodium 8.6-50 mg (Senokot-S) 1 tab-cap PO BEDTIME PRN 30 tabs 0RF constipation Coding Level of Care Code Est Pt Level 4 (77081) Diagnoses Essential hypertension I10 Type 2 diabetes mellitus with hyperglycemia, without long-term current use of insulin Diabetes mellitus type: type 2 Peripheral polyneuropathy G62.9 Peripheral neuropathy type: polyneuropathy, unspecified Normocalcemic primary hyperparathyroidism E21.0 Constipation, unspecified constipation type K59.00 Constipation type: unspecified constipation type
[2024-01-27 12:12] VITALS: BP 140/90; PULSE 85; O2SAT 99; BMI 27.3
== END 2024-01-27 16:04 | disposition home or self-care (01) ==
PROVIDERS: Visit Provider Internal Medicine
DX: I10 Essential (primary) hypertension (principal); E11.65 Type 2 diabetes mellitus with hyperglycemia; E21.0 Primary hyperparathyroidism; G62.9 Polyneuropathy, unspecified; K59.00 Constipation, unspecified
CPT/HCPCS: 99214

== ENCOUNTER 2024-02-15 10:28 | Outpatient (REF) | payer MEDICAID, SELFPAY ==
[2024-02-15 13:23] LABS: MANUAL DIFF FLAG NO
[2024-02-15 13:36] LABS: Basophils Percent Auto 0.1 % (0-2); Eosinophils Absolute Auto 0.1 X10*3/uL (0.0-0.4); Eosinophils Percent Auto 1.3 % (0-4); Hematocrit 42.6 % (42.0-52.0); Hemoglobin 12.6 g/dl (14.0-18.0); Imm Gran Abs Auto 0.01 X10*3/uL (0.00-0.03); Imm Gran Pct Auto 0.1 % (0.0-0.4); Lymphocytes Absolute Auto 3.7 X10*3/uL (1.2-4.9); Lymphocytes Percent Auto 54.3 % (20-40); Mean Corpuscular HGB Conc 29.6 g/dl (31.0-36.0); Mean Corpuscular Hemoglobin 22.7 pg (27.0-33.0); Mean Corpuscular Volume 76.8 fL (80.0-98.0); Mean Platelet Volume 11.6 fL (9.4-12.4); Monocytes Absolute Auto 0.5 X10*3/uL (0.1-1.2); Monocytes Percent Auto 7.9 % (2-11); Neutrophils Absolute Auto 2.4 x10*3/uL (2.0-8.3); Neutrophils Percent Auto 36.3 % (45-73); Platelet Count 247 X10*3/uL (160-400); Red Blood Count 5.55 X10*6/uL (4.60-5.80); Red Cell Distribution Width 13.6 % (11.0-16.0); White Blood Count 6.7 X10*3/uL (4.8-10.8)
[2024-02-15 13:45] LABS: Estimated Average Glucose 189 mg/dL; Hemoglobin A1c % 8.2 % (<6.0)
[2024-02-15 14:13] LABS: Alanine Aminotransferase 32 U/L (0-40); Albumin Level 4.1 g/dL (3.5-5.0); Alkaline Phosphatase 100 U/L (39-117); Anion Gap 11 (12-20); Aspartate Amino Transferase 25 U/L (5-37); Bilirubin Total 0.3 mg/dL (0.0-1.0); Blood Urea Nitrogen 11 mg/dL (9-16); Calcium 10.5 mg/dL (8.4-10.2); Carbon Dioxide 28 mmol/L (22-29); Chloride 106 mmol/L (96-108); Cholesterol 108 mg/dL (<200); Estimated Glomerular Filt Rate > 60; Glucose Fasting 70 mg/dL (60-99); HDL Cholesterol 43 mg/dL (>40); LDL Cholesterol Calculated 58 mg/dL (<100); Potassium 4.1 mmol/L (3.3-5.1); Sodium 141 mmol/L (135-145); Total Protein 7.8 g/dL (6.5-8.0); Triglycerides 36 mg/dL (<150); Vitamin D 25-OH Total 35.9 ng/mL (>30)
[2024-02-15 14:16] LABS: PSA,Total (Free>4and<10) 2.47 ng/mL (0.00-4.00)
[2024-02-15 14:17] LABS: Creatinine Urine 44.82 mg/dL; Microalbum/Creatinine Ratio Ur 31.2 ug/mg cr (<30)
== END 2024-02-15 10:29 | disposition home or self-care (01) ==
LOC: HO.HMGCLDS 10:28
PROVIDERS: Visit Provider Internal Medicine
DX: G62.9 Polyneuropathy, unspecified (principal); I10 Essential (primary) hypertension; E11.65 Type 2 diabetes mellitus with hyperglycemia
CPT/HCPCS: 36415; 80053; 80061; 82043; 82306; 82570; 83036; 84153; 85025

== ENCOUNTER 2024-09-12 08:33 | Outpatient (REF) | payer MEDICAID, SELFPAY ==
[2024-09-12 09:55] LABS: MANUAL DIFF FLAG NO
[2024-09-12 10:06] LABS: Basophils Percent Auto 0.3 % (0-2); Eosinophils Absolute Auto 0.1 X10*3/uL (0.0-0.4); Eosinophils Percent Auto 1.9 % (0-4); Hematocrit 43.9 % (42.0-52.0); Imm Gran Abs Auto 0.01 X10*3/uL (0.00-0.03); Imm Gran Pct Auto 0.1 % (0.0-0.4); Lymphocytes Absolute Auto 4.1 X10*3/uL (1.2-4.9); Lymphocytes Percent Auto 59.5 % (20-40); Mean Corpuscular HGB Conc 29.6 g/dl (31.0-36.0); Mean Corpuscular Hemoglobin 22.6 pg (27.0-33.0); Mean Corpuscular Volume 76.2 fL (80.0-98.0); Monocytes Absolute Auto 0.5 X10*3/uL (0.1-1.2); Monocytes Percent Auto 7.6 % (2-11); Neutrophils Absolute Auto 2.1 x10*3/uL (2.0-8.3); Neutrophils Percent Auto 30.6 % (45-73); Platelet Count 227 X10*3/uL (160-400); Red Blood Count 5.76 X10*6/uL (4.60-5.80); Red Cell Distribution Width 14.8 % (11.0-16.0)
[2024-09-12 10:30] LABS: Estimated Average Glucose 226 mg/dL; Hemoglobin A1C 267.6174 umol/L; Hemoglobin A1c % 9.5 % (<6.0); Total Hemoglobin (HGBA1C) 3348.1403 umol/L
[2024-09-12 10:36] LABS: Alanine Aminotransferase 25 U/L (0-40); Anion Gap 10 (12-20); Aspartate Amino Transferase 28 U/L (5-37); Blood Urea Nitrogen 9 mg/dL (9-16); Calcium 10.1 mg/dL (8.4-10.2); Carbon Dioxide 28 mmol/L (22-29); Chloride 106 mmol/L (96-108); Cholesterol 115 mg/dL (<200); Estimated Glomerular Filt Rate > 60; Glucose Fasting 98 mg/dL (60-99); HDL Cholesterol 39 mg/dL (>40); Iron 86 mcg/dL (45-160); LDL Cholesterol Calculated 59 mg/dL (<100); Percent Iron Saturation 30 % (15-50); Potassium 4.5 mmol/L (3.3-5.1); Sodium 139 mmol/L (135-145); Total Iron Binding Capacity 287 mcg/dL (228-428); Triglycerides 89 mg/dL (<150); Unsaturated Iron Binding 201 ug/dL
[2024-09-12 10:54] LABS: Ferritin 69 ng/mL (20-250); Vitamin D 25-OH Total 19.9 ng/mL (>30)
[2024-09-12 10:56] LABS: Microalbum/Creatinine Ratio Ur 16.9 ug/mg cr (<30)
== END 2024-09-12 08:34 | disposition home or self-care (01) ==
LOC: HO.HMGCLDS 08:33
PROVIDERS: PCP Internal Medicine; Visit Provider Internal Medicine
DX: E11.40 Type 2 diabetes mellitus with diabetic neuropathy, unspecified (principal); E11.65 Type 2 diabetes mellitus with hyperglycemia; I10 Essential (primary) hypertension; E21.0 Primary hyperparathyroidism; D64.9 Anemia, unspecified
CPT/HCPCS: 36415; 80048; 80061; 82043; 82306; 82570; 82728; 83036; 83540; 84450; 84460; 85025

== ENCOUNTER 2024-09-15 12:45 | Outpatient (AMB) | payer MEDICAID, SELFPAY ==
[2024-09-15 12:47] VITALS: BP 176/70; PULSE 92; O2SAT 99; BMI 26.6
--- NOTE | 2024-09-15 12:47 | A.OFFPC_ITS ---
Vital Signs 09/15/24 12:47 09/15/24 13:30 Height 5 ft 6 in Weight 165 lb BMI 26.6 BP 176/70 H 150/85 H Blood Pressure Location Rt brachial Rt brachial Position Sitting Sitting Pulse 92 Pulse Source Pulse Oximeter Pulse Oximetry (%) 99 Oxygen Delivery Method Room Air Intake Visit Reasons: f/u labs DM and lipids Intake Note: Pt is here today to f/u DM and lipids Allergies No Known Allergies Allergy (Verified 09/15/24 13:19) Medication List - Last Reconciled 09/15/24 by Atiya Joseph MD amlodipine 10 mg PO DAILY blood pressure test kit-medium As directed to monitor BP at home blood sugar diagnostic (FreeStyle Lite Strips) check blood sugar in am and pm before eating blood-glucose meter (FreeStyle [place] Lite kit) Check fasting blood sugar in a.m. before breakfast and at night before supper time cholecalciferol (vitamin D3) 50 mcg PO DAILY docusate sodium (Colace) 100 mg PO BID gabapentin 300 mg PO Q8H glipizide 10 mg PO BID 30 days lancets (FreeStyle Lancets) Use as directed to check blood sugar twice a day before meals lisinopril 20 mg PO DAILY metformin 1,000 mg PO BID sennosides (senna) 17.2 mg (2 x 8.6 mg) PO DAILY sennosides-docusate sodium 8.6-50 mg (Senokot-S) 1 tab-cap PO BEDTIME PRN sitagliptin phosphate (Januvia) 100 mg PO DAILY Tobacco use date assessed: 09/15/24 Fall risk assessment: No Falls in past year Last assessed Fall Risk: 09/15/24 Dental Screening Dental Screen Date: 09/15/24 Did you have a dental visit in the last 12 months?: Yes Did you have a dental problem in the last 6 months where you did not have access to dental care?: No Was dental information given to patient?: Patient has dentist HPI f/u labs DM and lipids HPI Details 74 year-old male with diabetes mellitus with peripheral neuropathy, history of normocalcemic primary hyperparathyroidism followed by Dr. Wall, last seen 02/2023, and hypertension, here today for his follow-up. Patient has been in out the country, travels to [place] frequently , just came back a couple of weeks ago. He states that he ran out of his medicines for at least a week, just started taking it again. Blood pressure today is elevated, states that he took 2 of his medicines this morning at 06:00, but could not tell me what he took. On review of his medications he could not confirm if he is taking any of these medicines that was on his list He had recent fasting labs done which showed higher hemoglobin A1c at 9.5 %, urine microalbumin however was within normal limits as well as his fasting lipids. His vitamin-D level was very low at 15. He states that he has been feeling well, with no complaints of any headache, no lightheadedness, no chest pain or shortness of breath, no palpitations He is overdue for his diabetes retinopathy screening, advised patient to call his insurance and see who he can see for his eye exam. [facility] Medical History Anemia Peripheral neuropathy Normocalcemic primary hyperparathyroidism Burning sensation of toe and foot Essential hypertension Diabetes mellitus with hyperglycemia, without long-term current use of insulin Surgical History No pertinent past surgical history Social History Housing: Apartment Alcohol intake: never Patient Tobacco Use Status: Never used Tobacco e-Cigarette/Vaping Use: Never Used Second Hand Smoke Exposure: No service: No Current occupational status: employed Cognitive needs: No Hearing needs: No Vision needs: No Questionnaire PHQ-9 Over the last 2 weeks, how often have you been bothered by any of the following problems? Depression Screening Interpretation: Negative Depression Screening Done: Yes Source: Developed by Drs. Mark Nichols, Eloisa Campos, Dalton Mcbride and colleagues, with an educational oswald from [employer]. Thrive Questionnaire Date Thrive assessed: 12/23/22 LUZMARIA-7 AMB Questionnaire LUZMARIA-7 Date LUZMARIA - 7 assessed: 12/23/22 Source: Developed by Drs. Mark Nichols, Eloisa Campos, Dalton Mcbride and colleagues, with an educational oswald from [employer]. Review of Systems Const Denies body aches, Denies fatigue, Denies fever(s) and Denies weakness Eyes Reports blurry vision and Reports requires corrective lenses (For reading) ENT Denies dizziness, Denies nasal congestion, Denies nasal discharge and Denies sore throat Card Denies palpitations Resp Denies chest congestion and Denies cough GI Denies abdominal pain and Denies heartburn Denies hematuria, Denies difficulty urinating, Denies dysuria, Denies urinary frequency and Denies urinary urgency Musc Reports no additional complaints Skin/Breast Denies rash Neuro Denies dizziness, Reports paresthesias (Lower extremities) and Denies weakness Endo Denies fatigue, Denies polydipsia, Denies polyuria and Denies palpitations Ash/Lymph Denies easy bruising Physical exam (Primary Care) Vital Signs: Last Vital Signs Pulse 92 09/15/24 12:47 BP 150/85 H 09/15/24 13:30 Pulse Ox 99 09/15/24 12:47 Oxygen Delivery Method Room Air 09/15/24 12:47 BMI result Body Mass Index 26.6 Tobacco/Smoking Status: Tobacco use Status Tobacco use date assessed 09/15/24 09/15/24 13:07 Patient Tobacco Use Status Never used Tobacco 09/15/24 12:47 e-Cigarette/Vaping Use Never Used 09/15/24 12:47 Depression Screening Interpretation: Negative Thrive Assessment: Date of Thrive Assessment Date Thrive assessed 12/23/22 09/15/24 12:47 Const General: cooperative, comfortable and no acute distress Orientation/consciousness: patient oriented x3 HENMT Ears: external ears normal General nose exam: Normal external nose present Mouth: Normal oral and palatal mucosa present and moist mucous membranes Eyes General: appearance normal, both eyes and all related structures Neck Neck: Yes full ROM, Yes no lymphadenopathy and Yes supple Resp Effort & Inspection: normal respiratory effort and able to speak in complete sentences Auscultation: clear to auscultation bilaterally Cardio Rate: regular rate Rhythm: regular rhythm Heart sounds: S1 normal heart sound present and S2 normal heart sound present Peripheral pulses: Peripheral pulses 2+ throughout GI Inspection: Yes normal to inspection Palpation (GI): Soft to palpation, nontender and no masses Auscultation: normal bowel sounds Neuro General: patient oriented x3, gait normal, tone normal, moves all extremities, Normal light touch and pain sensation, no focal motor deficits and decrease sensation to monofilament Extrem General: Yes full ROM, Yes no joint enlargement, Yes no pedal edema and Yes normal gait Results Reviewed Results Reviewed: gokul: Martin Whittaker Age/Sex: 74/M : 1950 Unit#: [id number] Attend Dr: Atiya Joseph MD Re09/12/24 Status: DEP REF Location: [facility] Disch: SPEC : [id number] TRACI: 09/12/24 STATUS: COMP REQ : [id number] RECD: 09/12/[address]: Atiya Joseph MD COMP: 09/12/24 ENTERED: 09/12/[address] [facility] [address]: ORDERED: CBC Auto Diff Test Result Flag Reference WBC 7.0 4.8-10.8 X10*3/uL RBC 5.76 4.60-5.80 X10*6/uL HGB 13.0 L 14.0-18.0 g/dl HCT 43.9 42.0-52.0 % MCV 76.2 L 80.0-98.0 fL MCH 22.6 L 27.0-33.0 pg MCHC 29.6 L 31.0-36.0 g/dl RDW 14.8 11.0-16.0 % PLT 227 160-400 X10*3/uL MPV 11.0 9.4-12.4 fL Neut Pct Auto 30.6 L 45-73 % ImGran Pct Auto 0.1 0.0-0.4 % Lymp Pct Auto 59.5 H 20-40 % Gates Pct Auto 7.6 2-11 % Eos Pct Auto 1.9 0-4 % Baso Pct Auto 0.3 0-2 % NRBC Pct Auto 0.0 0.0-0.2 /100WBC ANC Neut Abs # 2.1 2.0-8.3 x10*3/uL ImGran Abs Auto 0.01 0.00-0.03 X10*3/uL Lymph Abs Auto 4.1 1.2-4.9 X10*3/uL Gates Abs Auto 0.5 0.1-1.2 X10*3/uL Eos Abs Auto 0.1 0.0-0.4 X10*3/uL Baso Abs Auto 0.0 0.0-0.2 X10*3/uL NRBC Abs Auto 0.000 0.0-0.012 X10*3/uL Name: Martin Whittaker Age/Sex: 74/M : 1950 Unit#: [id number] Attend Dr: Atiya Joseph MD Re09/12/24 Status: [facility]P [facility] Disch: SPEC : [id number] TRACI: 09/12/24 STATUS: COMP REQ : [id number] RECD: 09/12/[address]: Atiya Joseph MD COMP: 09/12/24 ENTERED: 09/12/[address] [facility] [address]: ORDERED: Met Prof Fast, IRON PROF, Ferritin, AST, ALT, Lipid Panel, Vitamin D 25- Test Result Flag Reference Sodium 139 135-145 mmol/L Potassium 4.5 3.3-5.1 mmol/L Slight Hemolysis CL 106 96-108 mmol/L CO2 28 22-29 mmol/L Gap 10 L 12-20 BUN 9 9-16 mg/dL Creat 0.98 0.5-1.4 mg/dL EGFR > 60 NOTE: For -[place] individuals, multiply the result by 1.210. Chronic Kidney Disease: Estimated GFR < 60 mL/min/1.73m2 Severe Kidney Disease: Estimated GFR < 15 mL/min/1.73m2 FBS 98 60-99 mg/dL CA 10.1 8.4-10.2 mg/dL Iron 86 45-160 mcg/dL TIBC 287 228-428 mcg/dL Saturation 30 15-50 % UIBC 201 ug/dL Ferritin 69 20-250 ng/mL AST (GOT) 28 5-37 U/L Slight Hemolysis ALT (GPT) 25 0-40 U/L Triglyceride 89 <150 mg/dL Desirable Triglyceride: less than 150 mg/dL Borderline High Triglyceride 150-199 mg/dL High Triglyceride: 200-499 mg/dL Very High Triglyceride: greater than or equal to 5OO mg/dL Cholesterol 115 <200 mg/dL Desirable Cholesterol: less than 200 mg/dL Borderline High Cholesterol: 200-239 mg/dL High Cholesterol: greater than 239 mg/dL LDL Calculated 59 <100 mg/dL Desirable LDL: less than 100 mg/dL Near Optimal/Above Optimal LDL: 110-129 mg/dL Borderline High LDL: 130-159 mg/dL High LDL: 160-189 mg/dL Very High LDL: greater than or equal to 190 mg/dL HDL 39 L >40 mg/dL Desirable HDL: greater than 40 mg/dL Note: This HDL assay may give artificially low results in patients with liver disease. Vit D 25-OH Tot 19.9 L >30 ng/mL Health Based Reference Values* < 20 ng/mL Deficient 20-30 ng/mL Insufficient > 30 ng/mL Sufficient Laboratory Tests 02/15/24 09/12/24 10:32 08:50 Estimat Average Glucose 226 Hemoglobin A1c % 8.2 H 9.5 H Laboratory Tests 09/12/24 09:00 Urine Creatinine 118.00 Urine Microalbumin 20.0 Microalb/Creat Ratio 16.9 Coding Level of Care Code Est Pt Level 4 (04143) Complex EM visit Add On G2211 Diagnoses Vitamin D deficiency E55.9 Essential hypertension I10 Type 2 diabetes mellitus with hyperglycemia, without long-term current use of insulin E11.65 Diabetes mellitus type: type 2 Assessment & Plan Assessment & Plan (1) Vitamin D deficiency: Code(s): E55.9 - Vitamin D deficiency, unspecified Plan: Prescription sent for vitamin-D 3 32927 units per capsule to take once a week for the next 3 months, (2) Essential hypertension: Code(s): I10 - Essential (primary) hypertension Category: Medical Plan: Blood pressure today elevated, patient unsure of what medicines he is taking for hypertension. Advised to see nurse navigator tomorrow to recheck blood pressure and to bring all his medicines for confirmation. Can not adjust treatment without knowing what he is currently on (3) Diabetes mellitus with hyperglycemia, without long-term current use of insulin: Code(s): E11.65 - Type 2 diabetes mellitus with hyperglycemia Category: Medical Qualifiers: Diabetes mellitus type: type 2 Qualified Code(s): E11.65 - Type 2 diabetes mellitus with hyperglycemia Plan: Hemoglobin A1c is higher as compared to last check. Patient has been out of some of his medicines for a while. Again advised to see nurse navigator tomorrow and being all his medicines that he is taking before I can even adjust treatment at this point in time. Reinforced importance of following diabetic diet as recommended and continue with regular weight-bearing exercise will see him back for follow-up in 1 month. Advised to get his yearly flu vaccine and COVID booster from the pharmacy. Medications: New cholecalciferol (vitamin D3) 1,250 mcg PO QWEEK 3 months 13 caps 0RF E55.9 - Vitamin D deficiency, unspecified
[2024-09-15 13:30] VITALS: BP 150/85
== END 2024-09-15 15:30 | disposition home or self-care (01) ==
LOC: HO.HMCC 12:45
PROVIDERS: PCP Internal Medicine; Visit Provider Internal Medicine
DX: E55.9 Vitamin D deficiency, unspecified (principal); I10 Essential (primary) hypertension; E11.65 Type 2 diabetes mellitus with hyperglycemia

== ENCOUNTER → 2024-09-15 12:45 | Outpatient (BNVA) | payer MEDICAID, SELFPAY | PROVIDERS: PCP Internal Medicine; Visit Provider Internal Medicine | DX: E55.9 Vitamin D deficiency, unspecified (principal); I10 Essential (primary) hypertension; E11.65 Type 2 diabetes mellitus with hyperglycemia | CPT/HCPCS: 99212 ==

== ENCOUNTER → 2024-09-16 09:37 | Outpatient (BNVA) | payer MEDICAID, SELFPAY | PROVIDERS: PCP Internal Medicine ==

== ENCOUNTER 2024-12-19 08:01 | Emergency (ER) | payer OTHER, MEDICAID, SELFPAY ==
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
[2024-12-19 08:03] VITALS: BP 186/94; PULSE 104; RESP 18; TEMP 36; O2SAT 97; BMI 30.1
--- OUTSIDE RECORDS SUMMARY | 2024-12-19 08:35 | XMS_ITS | Clinical Summary ---
Author Organization [facility] Facility Address [address] [place] [address], [place] [id number] Care Team Providers Care Processor Grain Name Role Phone Heath Joseph MD Primary Care Provider [phone] Social History Tobacco Use Types Packs/Day Years Used Date Smoking Tobacco: Never Assessed Sex and Gender Information Value Date Recorded Sex Assigned at Not on file Legal Sex Male 11:34 AM EST Gender Identity Not on file Sexual Orientation Not on file Plan of Treatment Health Maintenance Due Date Last Done Comments Colorectal Cancer Screening: Annual FOBT 2001 Colorectal Cancer Screening: Colonoscopy 2001 Colorectal Cancer Screening: Sigmoidoscopy 2001 Pneumococcal Vaccine: 65+ Ye ars (1 of 1 - PCV) 2017 Influenza Vaccine (#1) 2024 Hepatitis B Vaccine Aged Out No longe r eligible based on patient's age to complete this topic Insurance [address] [place] [address] [place] [address] [place] Care Teams Processor Grain Relationship Specialty Start Date End Date Heath Joseph MD [address] [place] [id number] PCP - General Internal Medicine 01/07/23
[2024-12-19 10:00] VITALS: BP 161/96; PULSE 95; RESP 18; TEMP 36.8; O2SAT 98
[2024-12-19] MEDS: Ketorolac Tromethamine 30 MG/ML VIAL IM (10:02)
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
[2024-12-19 11:21] VITALS: BP 161/96; PULSE 95; RESP 18; TEMP 36.8; O2SAT 98
== END 2024-12-19 11:22 | disposition home or self-care (01) ==
PROVIDERS: Emergency Provider Emergency Medicine; PCP Internal Medicine
DX: S63.502A Unspecified sprain of left wrist, initial encounter (principal); M54.50 Low back pain, unspecified; M79.605 Pain in left leg; M54.16 Radiculopathy, lumbar region; V43.52XA Car driver injured in collision with other type car in traffic accident, initial encounter; Y93.9 Activity, unspecified; Y92.410 Unspecified street and highway as the place of occurrence of the external cause; Y99.8 Other external cause status
CPT/HCPCS: 72100; 73110; 96372; 99283; 99284; J1885

== ENCOUNTER → 2024-12-19 08:50 | Outpatient (BNV) | payer OTHER, MEDICAID, SELFPAY | PROVIDERS: PCP Internal Medicine; Visit Provider Radiology Diagnostic Radiology | DX: M47.816 Spondylosis without myelopathy or radiculopathy, lumbar region (principal); S69.92XA Unspecified injury of left wrist, hand and finger(s), initial encounter | CPT/HCPCS: 72100; 73110 ==

== ENCOUNTER → 2024-12-21 12:55 | Outpatient (BNVA) | payer OTHER, MEDICAID, SELFPAY | PROVIDERS: PCP Internal Medicine; Visit Provider Internal Medicine | DX: M25.512 Pain in left shoulder (principal); M54.42 Lumbago with sciatica, left side | CPT/HCPCS: 96127 ==

== ENCOUNTER 2025-01-03 10:51 | Outpatient (AMB) | payer OTHER, MEDICAID, SELFPAY ==
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
[2025-01-03 11:56] VITALS: BP 142/90; PULSE 84; O2SAT 99
--- OUTSIDE RECORDS SUMMARY | 2025-01-03 12:02 | XMS_ITS | Clinical Summary ---
Author Organization [facility] Facility Address [address] [place] [address], [place] [address] Care Team Providers Care Documentation Billing Clerk Name Role Phone Heath Joseph MD Primary Care Provider +1- [phone] Social History Tobacco Use Types Packs/Day Years [...] complete this topic Insurance [address] [place] [address] [place] [address] [place] Care Teams Documentation Billing Clerk Relationship Specialty Start Date End Date Heath Joseph MD [address] [place] [id number] PCP - General Internal Medicine 01/07/23
== END 2025-01-03 12:10 | disposition home or self-care (01) ==
PROVIDERS: PCP Internal Medicine; Visit Provider Physician Assistant
DX: Z87.828 Personal history of other (healed) physical injury and trauma (principal); M54.50 Low back pain, unspecified

== ENCOUNTER → 2025-01-03 10:51 | Outpatient (BNVA) | payer OTHER, MEDICAID, SELFPAY | PROVIDERS: PCP Internal Medicine ==

== ENCOUNTER 2025-01-09 07:48 | Outpatient (REF) | payer MEDICAID, SELFPAY ==
--- OUTSIDE RECORDS SUMMARY | 2025-01-09 07:59 | XMS_ITS | Clinical Summary ---
Author Organization [facility] Facility Address [address] [place] [address], [place] [address] Care Team Providers Care Counter Caser Name Role Phone Heath Joseph MD Primary Care Provider +1- [phone] Social History Tobacco Use Types Packs/Day Years [...] complete this topic Insurance Dr [address] [place] [address] [place] [address] [place] Care Teams Counter Caser Relationship Specialty Start Date End Date Heath Joseph MD [address] [place] [id number] PCP - General Internal Medicine 01/07/23
[2025-01-09 10:27] LABS: MANUAL DIFF FLAG NO
[2025-01-09 10:46] LABS: Basophils Percent Auto 0.4 % (0-2); Eosinophils Absolute Auto 0.1 X10*3/uL (0.0-0.4); Eosinophils Percent Auto 1.2 % (0-4); Hemoglobin 12.4 g/dl (14.0-18.0); Imm Gran Abs Auto 0.03 X10*3/uL (0.00-0.03); Imm Gran Pct Auto 0.4 % (0.0-0.4); Lymphocytes Absolute Auto 2.9 X10*3/uL (1.2-4.9); Lymphocytes Percent Auto 34.8 % (20-40); Mean Corpuscular HGB Conc 30.2 g/dl (31.0-36.0); Mean Corpuscular Hemoglobin 22.7 pg (27.0-33.0); Mean Corpuscular Volume 75.1 fL (80.0-98.0); Mean Platelet Volume 12.3 fL (9.4-12.4); Monocytes Absolute Auto 0.4 X10*3/uL (0.1-1.2); Monocytes Percent Auto 5.2 % (2-11); Neutrophils Absolute Auto 4.9 x10*3/uL (2.0-8.3); Platelet Count 297 X10*3/uL (160-400); Red Blood Count 5.46 X10*6/uL (4.60-5.80); Red Cell Distribution Width 13.9 % (11.0-16.0); White Blood Count 8.5 X10*3/uL (4.8-10.8)
[2025-01-09 11:05] LABS: Estimated Average Glucose 258 mg/dL; Hemoglobin A1c % 10.6 % (<6.0)
[2025-01-09 11:27] LABS: Alanine Aminotransferase 34 U/L (0-40); Anion Gap 10 (12-20); Aspartate Amino Transferase 29 U/L (5-37); Blood Urea Nitrogen 13 mg/dL (9-16); Calcium 10.8 mg/dL (8.4-10.2); Carbon Dioxide 26 mmol/L (22-29); Chloride 107 mmol/L (96-108); Cholesterol 109 mg/dL (<200); Estimated Glomerular Filt Rate 54; Glucose Fasting 187 mg/dL (60-99); HDL Cholesterol 40 mg/dL (>40); Iron 28 mcg/dL (45-160); LDL Cholesterol Calculated 62 mg/dL (<100); Percent Iron Saturation 11 % (15-50); Potassium 4.1 mmol/L (3.3-5.1); Sodium 139 mmol/L (135-145); Total Iron Binding Capacity 257 mcg/dL (228-428); Triglycerides 36 mg/dL (<150); Unsaturated Iron Binding 229 ug/dL; Vitamin D 25-OH Total 26.8 ng/mL (>30)
[2025-01-09 12:28] LABS: Microalbum/Creatinine Ratio Ur 20.8 ug/mg cr (<30)
== END 2025-01-09 07:49 | disposition home or self-care (01) ==
LOC: HO.HMGCLDS 07:48
PROVIDERS: PCP Internal Medicine; Visit Provider Internal Medicine
DX: D64.9 Anemia, unspecified (principal); I10 Essential (primary) hypertension; E11.65 Type 2 diabetes mellitus with hyperglycemia
CPT/HCPCS: 36415; 80048; 80061; 82043; 82306; 82570; 83036; 83540; 84450; 84460; 85025

== ENCOUNTER 2025-05-15 11:49 | Outpatient (AMB) | payer OTHER, MEDICARE, MEDICAID, SELFPAY ==
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
[2025-05-15 12:06] VITALS: BP 128/76; PULSE 96; TEMP 36.7; O2SAT 98; BMI 27.1
--- OUTSIDE RECORDS SUMMARY | 2025-05-15 12:38 | XMS_ITS | Clinical Summary ---
Author Organization [facility] Facility Address [address] [place] [address], [place] [address] Care Team Providers Care Process Improvement Manager Name Role Phone Heath Joseph MD Primary Care Provider +1- [phone] Social History Tobacco Use Types Packs/Day Years [...] Colorectal Cancer Screening: Sigmoidoscopy 2001 Pneumococcal Vaccine: 50+ Ye ars (1 of - PCV) 2002 Influenza Vaccine (Season Ended) 2025 Hepatitis B Vaccine Aged Out No longe r eligible based on patient's age to complete this topic Insurance Dr [address] [place] [address] [place] [address] Medicaid [place] Care Teams Process Improvement Manager Relationship Specialty Start Date End Date Heath Joseph MD [address] [place] [id number] PCP - General Internal Medicine 01/07/23
== END 2025-05-15 12:29 | disposition home or self-care (01) ==
PROVIDERS: PCP Internal Medicine; Visit Provider Nurse Practitioner Family
DX: M54.2 Cervicalgia (principal); M25.511 Pain in right shoulder

== ENCOUNTER → 2025-05-15 11:49 | Outpatient (BNVA) | payer OTHER, MEDICARE, MEDICAID, SELFPAY | PROVIDERS: PCP Internal Medicine; Visit Provider Nurse Practitioner Family | DX: Z13.89 Encounter for screening for other disorder (principal) ==

== ENCOUNTER 2025-05-30 11:10 | Outpatient (AMB) | payer OTHER, MEDICARE, MEDICAID, SELFPAY ==
[2025-05-30 11:14] VITALS: BP 126/64; PULSE 92; TEMP 37; O2SAT 99; BMI 27.6
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
--- OUTSIDE RECORDS SUMMARY | 2025-05-30 12:34 | XMS_ITS | Clinical Summary ---
Author Organization [facility] Facility Address [address] [place] [address], [place] [address] Care Team Providers Care Spout Worker Name Role Phone Heath Joseph MD Primary Care Provider +1- [phone] Social History Tobacco Use Types Packs/Day Years [...] Pneumococcal Vaccine: 50+ Ye ars (1 of 1 - PCV) 2002 Influenza Vaccine (#1) 2025 Hepatitis B Vaccine Aged Out No longe r eligible based on patient's age to complete this topic Insurance Dr [address] [place] [address] [place] [address] Medicaid [place] Care Teams Spout Worker Relationship Specialty Start Date End Date Heath Joseph MD [address] [place] [id number] PCP - General Internal Medicine 01/07/23
== END 2025-05-30 12:27 | disposition home or self-care (01) ==
PROVIDERS: PCP Internal Medicine; Visit Provider Physician Assistant
DX: S46.811D Strain of other muscles, fascia and tendons at shoulder and upper arm level, right arm, subsequent encounter (principal); R07.89 Other chest pain; R10.9 Unspecified abdominal pain; Z04.3 Encounter for examination and observation following other accident; R81 Glycosuria

== ENCOUNTER → 2025-05-30 11:10 | Outpatient (BNVA) | payer OTHER, MEDICARE, MEDICAID, SELFPAY | PROVIDERS: PCP Internal Medicine; Visit Provider Physician Assistant | DX: E11.9 Type 2 diabetes mellitus without complications (principal); D64.9 Anemia, unspecified; I10 Essential (primary) hypertension; R07.89 Other chest pain; R10.9 Unspecified abdominal pain; R81 Glycosuria; S46.811S Strain of other muscles, fascia and tendons at shoulder and upper arm level, right arm, sequela; X58.XXXS Exposure to other specified factors, sequela | CPT/HCPCS: 81003; 82948 ==

== ENCOUNTER 2025-05-31 14:13 | Outpatient (AMB) | payer MEDICARE, MEDICAID, SELFPAY ==
[2025-05-31 14:21] VITALS: BP 144/72; PULSE 88; TEMP 36.7; O2SAT 97; BMI 27.8
--- NOTE | 2025-05-31 14:21 | AM.OFFWIN_ITS ---
Intake Vital Signs 05/31/25 14:21 Height 5 ft 4 in Weight 162 lb 2 oz BMI 27.8 BP 144/72 H Blood Pressure Location Rt brachial Position Sitting Pulse 88 Pulse Source Pulse Oximeter Temp 98.1 F Temp Source Oral Pulse Oximetry (%) 97 Oxygen Delivery Method Room Air Intake Visit Reasons: EP-high blood sugar Patient Tobacco Use Status: Never used Tobacco Biology Adjunct Instructor Required: No Allergies No Known Allergies Allergy (Verified 05/30/25 11:19) Do you need a note to return to daycare/school/sports/work: No HPI HPI Comments History of Present Illness Details History - The patient is a 75-year-old male pres enting again today with uncontrolled diabetes mellitus. - The patient has a history of Type 2 Di abetes Mellitus and is currently experiencing uncontrolled blood glucose levels. - The patient's blood glucose was record ed at 234 mg/dL today. - The patient's Hemoglobin A1c is 12.8%, indicating poor glycemic control over the past 90 days. - He tells me he hasn't been taking his metformin or glipizide and didn't take it today. He does not check his glucose at all. - The patient has been prescribed metfor min, glipizide, and Januvia (?) but reports non-adherence to the medication regimen. - The patient was advised to take metfor min 1000 mg twice daily, glipizide 10 mg twice daily, and ?Januvia 100 mg once daily. - It appears he was told to follow up wi th the nurse navigator so his PCP could see how taking his medications effects his blood sugar and then possibly add Januvia from there. He did attend an appointment with the nurse navigator on 09/16/2024 but it does not look like he has had much follow up since. - he was seen in this office yesterday a nd sent to the emergency department because his glucose was over 500 but then he left [facility] emergency department AMA because the wait was too long. He also told me the doctor told him there is ?nothing they could do for him ? - The patient has a history of achieving better glycemic control with A1c levels in the 7% range previously. - he tells me he did have a diabetic eye exam at an eye doctor in [facility] and then he went for a 2nd exam at a place in [place] and he was told everything was normal. Physical Exam General: Cooperative, healthy appearing, comfortable, no acute distress and well developed Orientation: Patient oriented x3 Limitations: No limitations Head: Normal to inspection Ears: Hearing grossly normal bilaterally Nose: Normal External nose present Face and sinus: Normal facial exam Mouth: normal, moist oral mucosa Eyes: Appearance normal, both eyes and all related structures Neck: Normal visual inspection and Yes full ROM Respiratory: Normal respiratory effort and able to speak in complete sentences. Skin: no rashes or lesions noted Neuro: Patient oriented x3 Extremities: moving all extremities normally [facility] Medical History (Updated 05/31/25 @ 14:59 by Emily Frye PA-C) Right shoulder pain Cervicalgia Anemia Peripheral neuropathy Normocalcemic primary hyperparathyroidism Burning sensation of toe and foot Essential hypertension Diabetes mellitus with hyperglycemia, without long-term current use of insulin Surgical History No pertinent past surgical history Social History Housing: Apartment Alcohol intake: never Patient Tobacco Use Status: Never used Tobacco e-Cigarette/Vaping Use: Never Used Second Hand Smoke Exposure: No service: No Current occupational status: employed Cognitive needs: No Hearing needs: No Vision needs: No Physical Exam Vital Signs: Last Vital Signs Temp 98.1 F 05/31/25 14:21 Pulse 88 05/31/25 14:21 BP 144/72 H 05/31/25 14:21 Pulse Ox 97 05/31/25 14:21 Oxygen Delivery Method Room Air 05/31/25 14:21 BMI result Body Mass Index 27.8 Results AMB Random Glucose (hemocue) AMB Random Glucose (hemocue) 234 mg/dL Last Edit by Ashley Lee MA on 05/31 14:42 AMB Hemoglobin A1c AMB Hemoglobin A1c 12.8 % Last Edit by Ashley Lee MA on 05/31/25 14:44 Assessment & Plan Assessment & Plan (1) Uncontrolled diabetes mellitus with hyperglycemia: Code(s): E11.65 - Type 2 diabetes mellitus with hyperglycemia Qualifiers: Diabetes mellitus type: type 2 Qualified Code(s): E11.65 - Type 2 diabetes mellitus with hyperglycemia Plan: Plan Patient was informed and verbally consented to the use of an ambient scribe for clinic note documentation during this visit Type 2 Diabetes Mellitus - The patient was advised to adhere to the prescribed medication regimen, including metformin 1000 mg twice daily, glipizide 10 mg twice daily, check blood glucose in AM and PM. - The patient was instructed to monitor blood glucose levels regularly and report any significant changes. - A follow-up appointment with a nurse navigator was recommended to assist with medication management and ensure adherence. Will need follow up appt with PCP as well to adjust meds once he starts taking them again. Orders: Orders AMB Hemoglobin A1c Today Z13.9 - Encounter for screening, unspecified AMB Random Glucose (hemocue) Today Z13.9 - Encounter for screening, unspecified Coding Level of Care Code Est Pt Level 4 (09353) Diagnoses Uncontrolled type 2 diabetes mellitus with hyperglycemia E11.65 Diabetes mellitus type: type 2
--- OUTSIDE RECORDS SUMMARY | 2025-05-31 14:55 | XMS_ITS | Clinical Summary ---
Author Organization [facility] Facility Address [address] [place] [address], [place] [address] Care Team Providers Care Roastmaster Name Role Phone Heath Joseph MD Primary Care Provider [phone]- [phone] Social History Tobacco Use Types Packs/Day Years [...] complete this topic Insurance [address] [place] [address] [place] [address] [place] Care Teams Roastmaster Relationship Specialty Start Date End Date Heath Joseph MD [address] [place] [id number] PCP - General Internal Medicine 01/07/23
== END 2025-05-31 15:00 | disposition home or self-care (01) ==
PROVIDERS: PCP Internal Medicine; Visit Provider Physician Assistant
DX: Z13.9 Encounter for screening, unspecified (principal); E11.65 Type 2 diabetes mellitus with hyperglycemia

== ENCOUNTER → 2025-05-31 14:13 | Outpatient (BNVA) | payer MEDICARE, MEDICAID, OTHER, SELFPAY | PROVIDERS: PCP Internal Medicine; Visit Provider Physician Assistant | DX: E11.65 Type 2 diabetes mellitus with hyperglycemia (principal) | CPT/HCPCS: 82948; 83036; 99212 ==

== ENCOUNTER → 2025-06-09 09:42 | Outpatient (BNVA) | payer MEDICARE, MEDICAID, SELFPAY | PROVIDERS: PCP Internal Medicine | DX: E11.65 Type 2 diabetes mellitus with hyperglycemia (principal) | CPT/HCPCS: 99211 ==

== ENCOUNTER 2025-06-16 07:20 | Outpatient (REF) | payer MEDICARE, MEDICAID, SELFPAY ==
[2025-06-16 11:00] LABS: MANUAL DIFF FLAG NO
[2025-06-16 11:17] LABS: Alanine Aminotransferase 26 U/L (0-40); Albumin Level 3.9 g/dL (3.5-5.0); Alkaline Phosphatase 123 U/L (39-117); Anion Gap 11 (12-20); Aspartate Amino Transferase 23 U/L (5-37); Blood Urea Nitrogen 13 mg/dL (9-16); Calcium 9.4 mg/dL (8.4-10.2); Carbon Dioxide 27 mmol/L (22-29); Chloride 105 mmol/L (96-108); Cholesterol 129 mg/dL (<200); Estimated Glomerular Filt Rate > 60; HDL Cholesterol 44 mg/dL (>40); Hematocrit 40.5 % (42.0-52.0); Hemoglobin 12.1 g/dl (14.0-18.0); Imm Gran Abs Auto 0.02 X10*3/uL (0.00-0.03); Imm Gran Pct Auto 0.3 % (0.0-0.4); Iron 66 mcg/dL (45-160); Lymphocytes Absolute Auto 3.5 X10*3/uL (1.2-4.9); Mean Corpuscular HGB Conc 29.9 g/dl (31.0-36.0); Mean Corpuscular Hemoglobin 22.6 pg (27.0-33.0); Mean Corpuscular Volume 75.6 fL (80.0-98.0); NRBC Abs Auto 0.000 X10*3/uL (0.0-0.012); NRBC Pct Auto 0.0 /100WBC (0.0-0.2); Percent Iron Saturation 26 % (15-50); Platelet Count 213 X10*3/uL (160-400); Potassium 3.8 mmol/L (3.3-5.1); Red Blood Count 5.36 X10*6/uL (4.60-5.80); Sodium 139 mmol/L (135-145); Total Iron Binding Capacity 255 mcg/dL (228-428); Total Protein 7.1 g/dL (6.5-8.0); Triglycerides 80 mg/dL (<150); Unsaturated Iron Binding 189 ug/dL; White Blood Count 6.8 X10*3/uL (4.8-10.8)
[2025-06-16 11:36] LABS: Microalbum/Creatinine Ratio Ur 25.0 ug/mg cr (<30)
[2025-06-16 12:31] LABS: Hemoglobin A1C 345.3057 umol/L; Total Hemoglobin (HGBA1C) 3167.8115 umol/L
== END 2025-06-16 07:21 | disposition home or self-care (01) ==
LOC: HO.HMGCLDS 07:20
PROVIDERS: PCP Internal Medicine; Visit Provider Internal Medicine
DX: I10 Essential (primary) hypertension (principal); E11.65 Type 2 diabetes mellitus with hyperglycemia; E21.0 Primary hyperparathyroidism; D64.9 Anemia, unspecified
CPT/HCPCS: 36415; 80053; 80061; 82043; 82570; 83036; 83540; 85025

== ENCOUNTER 2025-06-22 07:39 | Outpatient (AMB) | payer MEDICARE, MEDICAID, SELFPAY ==
--- OUTSIDE RECORDS SUMMARY | 2025-06-22 07:40 | XMS_ITS | Clinical Summary ---
Author Organization [facility] Facility Address [address] [place] [address], [place] [address] Care Team Providers Care Quality Control Tech Raw Materials Name Role Phone Heath Joseph MD Primary Care Provider [phone]- [phone] Social History Tobacco Use Types Packs/Day Years [...] complete this topic Insurance [address] [place] [address] [place] [address] [place] Care Teams Quality Control Tech Raw Materials Relationship Specialty Start Date End Date Heath Joseph MD [address] [place] [id number] PCP - General Internal Medicine 01/07/23
[2025-06-22 08:13] VITALS: BP 134/72; PULSE 90; RESP 16; TEMP 36.8; O2SAT 99; BMI 28.1
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
== END 2025-06-22 08:59 | disposition home or self-care (01) ==
LOC: HO.HMCC 07:39
PROVIDERS: PCP Internal Medicine; Visit Provider Internal Medicine
DX: E11.65 Type 2 diabetes mellitus with hyperglycemia (principal); I10 Essential (primary) hypertension; D64.9 Anemia, unspecified; E11.40 Type 2 diabetes mellitus with diabetic neuropathy, unspecified

== ENCOUNTER → 2025-06-22 07:39 | Outpatient (BNVA) | payer MEDICARE, MEDICAID, SELFPAY | PROVIDERS: PCP Internal Medicine; Visit Provider Internal Medicine | DX: E11.65 Type 2 diabetes mellitus with hyperglycemia (principal); E11.40 Type 2 diabetes mellitus with diabetic neuropathy, unspecified; I10 Essential (primary) hypertension; D64.9 Anemia, unspecified | CPT/HCPCS: 99212 ==

== ENCOUNTER → 2025-06-23 09:35 | Outpatient (BNVA) | payer MEDICARE, MEDICAID, SELFPAY | PROVIDERS: PCP Internal Medicine | DX: I10 Essential (primary) hypertension (principal); E11.9 Type 2 diabetes mellitus without complications | CPT/HCPCS: 99211 ==

== ENCOUNTER 2025-07-24 10:17 | Outpatient (AMB) | payer MEDICARE, MEDICAID, SELFPAY ==
--- NOTE | 2025-07-24 10:19 | A.OFFVIS_ITS ---
Vital Signs 07/24/25 10:25 Height 5 ft 4 in Weight 164 lb BMI 28.1 Intake Visit Reasons: New Pt- Diabetic foot care/ Bilateral numbness Intake Note: Martin is a 75 year old male who presents today as a new patient for an evaluation for diabetes foot care. he mentions bilateral numbness and tingling in his feet . Patient reports no pain and has no concerns in regards to his feet at this time. Allergies No Known Allergies Allergy (Verified 07/24/25 10:24) Medication List - Last Reconciled 07/24/25 by Daniel Cosme DPM amlodipine 10 mg PO DAILY blood pressure test kit-medium As directed to monitor BP at home blood-glucose meter (FreeStyle [place] Lite kit) Check blood sugar once per day clotrimazole 1% (Antifungal (clotrimazole)) 1 appl topical BID 4 weeks FreeStyle Lite Strips (blood sugar diagnostic) Test blood sugar once a day before meals NS glipizide 10 mg PO BID lancets (FreeStyle Lancets) Test blood sugar twice a day lisinopril 20 mg PO DAILY metformin 1,000 mg PO BIDWMEAL Mounjaro (tirzepatide) 2.5 mg (0.5 mL) subcut QWEEK 30 days NS naproxen 500 mg PO Q12H PRN HPI HPI New Pt- Diabetic foot care/ Bilateral numbness: Details: 75 y/o male past medical history of uncontrolled type 2 diabetes mellitus, hypertension, presents today for initial evaluation for diabetic foot evaluation. Patient states that he has been diabetic for several years, states he is on insulin treatment (A1C 12%). Patient complains of occasional sensations of numbness to his feet, denies burning and tingling. Denies any acute injuries. States he has white discoloration between his toes, has not tried any treatment so far. At present, he denies N/V/F/C/SOB/CP. [facility] Medical History (Updated 07/24/25 @ 11:01 by Daniel Cosme DPM) Anemia Peripheral neuropathy Normocalcemic primary hyperparathyroidism Essential hypertension Diabetes mellitus with hyperglycemia, without long-term current use of insulin Surgical History No pertinent past surgical history Social History Housing: Apartment Alcohol intake: never Patient Tobacco Use Status: Never used Tobacco e-Cigarette/Vaping Use: Never Used Second Hand Smoke Exposure: No service: No Current occupational status: employed Cognitive needs: No Hearing needs: No Vision needs: No Review of Systems Const All systems reviewed & are unremarkable except as noted in HPI and below Physical Exam Extrem Other: *Bilateral Lower Extremity Focused Exam Vascular: DP/PT 2/4 bilaterally, CFT<3s to digits, TG warm to cool, no pedal edema Derm: No open lesions, ulcerations, or calluses. No erythema or fissures. Interdigital maceration with dry white discoloration to 3rd interspace bilaterally, no underlying wound. Nails: Thickened, discolored toenails x10 with subungual debris. Neuro: [place]-prasad monofilament (10g) test - intact to all sites 10/10 Right foot, intact to 7/10 sites L foot (deficient at L hallux, 3rd, and 5th toes). MSK: No evidence of hammertoes, bunions, Charcot changes, or other structural abnormalities. Gait: Normal, no antalgic or steppage gait. Office Procedures AMB Debridement/Avulsion Podia 13549-Spojxlkdweq of Nail 6+ (Debrided elongated thickened diabetic nails x10 using sterile nail nipper. Patient tolerated the procedure well with no complications.) Procedure code (CPT) selection complete Results Reviewed Results Reviewed: Reviewed lab results: * A1C 12.8% 05/31/2025 * A1C 12.1% 06/16/2025 02/04/2023 Lower extremity duplex IMPRESSION: There is no evidence of any hemodynamically significant lower extremity arterial disease by pressure, waveform or duplex Doppler criteria at rest. Assessment & Plan Assessment & Plan (1) Diabetic peripheral neuropathy associated with type 2 diabetes mellitus: Code(s): E11.42 - Type 2 diabetes mellitus with diabetic polyneuropathy Category: Medical Plan: * Educated patient on lower extremity risks due to Diabetes mellitus, including but not limited to: ulceration, infection, neuropathy, neuropathic fractures, and amputation. * Instructed patient to assess his feet daily for foreign bodies, ulcers, calluses, and infections. * Instructed patient to moisturize daily. * Monofilament tests 10/10 on the right foot, 7/10 on the left foot. Discussed his has clinical findings of peripheral neuropathy. Will continue to monitor closely. Patient is at increased risk for infections and diabetic foot ulcers due to peripheral neuropathy. * Educated patient with his A1C >12%, he is at dangerous risk of infection and complications from pedal injury. Instructed patient on importance of glycemic control and meeting his A1C goal, to be worked on with his PCP and Director Cardiology. (2) Diabetes mellitus with hyperglycemia, without long-term current use of insulin: Code(s): E11.65 - Type 2 diabetes mellitus with hyperglycemia Category: Medical Qualifiers: Diabetes mellitus type: type 2 Qualified Code(s): E11.65 - Type 2 diabetes mellitus with hyperglycemia (3) Dystrophia unguium: Code(s): L60.3 - Nail dystrophy Category: Medical Plan: * Debrided elongated thickened diabetic nails x10 using sterile nail nipper. Patient tolerated the procedure well with no complications. * Follow up in 9 weeks. 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 Plan As per assessment & plan section. Orders: Orders AMB Debridement/Avulsion Podiatry Today L60.3 - Nail dystrophy Medications: New clotrimazole 1% (Antifungal (clotrimazole)) Apply between 3rd and 4th toes daily for fungus infection. 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
[2025-07-24 10:25] VITALS: BMI 28.1
--- OUTSIDE RECORDS SUMMARY | 2025-07-24 12:14 | XMS_ITS | Clinical Summary ---
Author Organization [facility] Facility Address [address] [place] [address], [place] [address] Care Team Providers Care An Employee Sponsor Or Advocate And Name Role Phone Heath Joseph MD Primary Care Provider [phone] Social History Tobacco Use Types Packs/Day Years [...] complete this topic Insurance [address] [place] [address] [place] [address] [place] [address] Medicaid [place] Care Teams An Employee Sponsor Or Advocate And Relationship Specialty Start Date End Date Heath Joseph MD [address] [place] [id number] PCP - General Internal Medicine 01/07/23
== END 2025-07-24 10:49 | disposition home or self-care (01) ==
LOC: HO.HPODS 10:17
PROVIDERS: PCP Internal Medicine; Visit Provider Student in an Organized Health Care Education/Training Program
DX: L60.3 Nail dystrophy (principal); E11.42 Type 2 diabetes mellitus with diabetic polyneuropathy; E11.65 Type 2 diabetes mellitus with hyperglycemia; B35.9 Dermatophytosis, unspecified
CPT/HCPCS: 11721; 99204

== ENCOUNTER → 2025-07-24 10:17 | Outpatient (BNVA) | payer MEDICARE, MEDICAID, SELFPAY | PROVIDERS: PCP Internal Medicine; Visit Provider Student in an Organized Health Care Education/Training Program | DX: L60.3 Nail dystrophy (principal); E11.65 Type 2 diabetes mellitus with hyperglycemia; E11.42 Type 2 diabetes mellitus with diabetic polyneuropathy; B35.9 Dermatophytosis, unspecified; R20.0 Anesthesia of skin | CPT/HCPCS: 11721; 99202 ==

== ENCOUNTER 2025-07-28 10:10 | Emergency (ER) | payer MEDICARE, MEDICAID, SELFPAY ==
--- NOTE | ~2025-07-28 | XR_ITS ---
EXAMINATION: XR CHEST 2 VIEWS HISTORY: chest pain COMPARISON: There are no prior studies available for comparison. FINDINGS: PA and lateral views of the chest are submitted. The lungs are expanded and clear. There is no pleural effusion, pneumothorax, or pulmonary vascular congestion. The heart is normal in size. The bones are intact. XR/XR chest 2V IMPRESSION: Clear lungs. Electronically signed by: Mark Moran MD 07/28/2025 10:48 AM EDT
--- NOTE | 2025-07-28 10:13 | ECG_ITS ---
Test Reason : CP Blood Pressure : */* mmHG Vent. Rate : 101 BPM Atrial Rate : 101 BPM P-R Int : 226 ms QRS Dur : 96 ms QT Int : 324 ms P-R-T Axes : 45 -15 36 degrees QTcB Int : 420 ms Sinus tachycardia with 1st degree A-V block Possible Left atrial enlargement Left ventricular hypertrophy ( R in aVL , Simla product , Romhilt-Arnett ) Abnormal ECG No previous ECGs available Referred By: Barbara Red Electronically Signed By: WALESKA ARELLANO MD
[2025-07-28 10:24] VITALS: BP 179/94; PULSE 99; RESP 18; TEMP 36.9; O2SAT 99; BMI 25.7
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
[2025-07-28 11:09] LABS: MANUAL DIFF FLAG NO
[2025-07-28 11:11] LABS: Hematocrit 41.0 % (42.0-52.0); Hemoglobin 12.4 g/dl (14.0-18.0); Imm Gran Abs Auto 0.01 X10*3/uL (0.00-0.03); Imm Gran Pct Auto 0.2 % (0.0-0.4); Lymphocytes Absolute Auto 2.2 X10*3/uL (1.2-4.9); Mean Corpuscular HGB Conc 30.2 g/dl (31.0-36.0); Mean Corpuscular Hemoglobin 22.9 pg (27.0-33.0); Mean Corpuscular Volume 75.6 fL (80.0-98.0); NRBC Abs Auto 0.000 X10*3/uL (0.0-0.012); NRBC Pct Auto 0.0 /100WBC (0.0-0.2); Platelet Count 205 X10*3/uL (160-400); Red Blood Count 5.42 X10*6/uL (4.60-5.80); White Blood Count 5.5 X10*3/uL (4.8-10.8)
[2025-07-28 11:20] LABS: INTERNATIONAL NORM RATIO 0.9 (0.9-1.1); Prothrombin Time 10.8 SEC (10.9-12.4)
[2025-07-28 11:29] LABS: IDNOW Serial# 08D9AD1C; Influenza B2 Positive (Negative)
[2025-07-28 11:36] LABS: Alanine Aminotransferase 22 U/L (0-40); Albumin Level 4.2 g/dL (3.5-5.0); Alkaline Phosphatase 103 U/L (39-117); Anion Gap 8 (12-20); Aspartate Amino Transferase 21 U/L (5-37); Blood Urea Nitrogen 16 mg/dL (9-16); Calcium 10.2 mg/dL (8.4-10.2); Carbon Dioxide 26 mmol/L (22-29); Chloride 107 mmol/L (96-108); Creatinine Clr Calc Pharmacy 58.5; Estimated Glomerular Filt Rate > 60; Magnesium 1.9 mg/dL (1.6-2.6); Potassium 4.4 mmol/L (3.3-5.1); Sodium 137 mmol/L (135-145); Total Protein 7.5 g/dL (6.5-8.0)
[2025-07-28 11:41] LABS: IDNOW Serial# 55D5AD1C
[2025-07-28 11:42] LABS: COVID-19 Test Negative (Negative)
[2025-07-28 11:43] LABS: B Type Natriuretic Peptide < 10 pg/mL (<100)
[2025-07-28 11:47] LABS: Troponin-I High Sensitivity < 2.7 ng/L (<3.5-35.0)
[2025-07-28 12:20] VITALS: BP 163/93; PULSE 94; RESP 19; TEMP 36.6; O2SAT 98
[2025-07-28 12:42] VITALS: BP 163/93; PULSE 98; RESP 16; O2SAT 98
[2025-07-28 14:00] VITALS: BP 154/93; PULSE 97; RESP 18; TEMP 36.8; O2SAT 99
[2025-07-28 14:13] LABS: INTERNATIONAL NORM RATIO 0.9 (0.9-1.1); Prothrombin Time 10.7 SEC (10.9-12.4)
[2025-07-28 14:15] LABS: D Dimer High Sensitivity 167 NG/ML; Partial Thromboplastin Time 26.9 SEC (26.7-34.1)
[2025-07-28 14:33] LABS: Troponin-I High Sensitivity < 2.7 ng/L (<3.5-35.0)
--- OUTSIDE RECORDS SUMMARY | 2025-07-28 14:50 | XMS_ITS | Clinical Summary ---
Author Organization [facility] Facility Address [address] [place] [address], [place] [address] Care Team Providers Care Web Content Director Name Role Phone Heath Joseph MD Primary Care Provider [phone]- [phone] Social History Tobacco Use Types Packs/Day Years [...] complete this topic Insurance Dr [address] [place] [address] [place] [address] [place] [address] Medicaid [place] Care Teams Web Content Director Relationship Specialty Start Date End Date Heath Joseph MD [address] [place] [id number] PCP - General Internal Medicine 01/07/23
[2025-07-28 17:05] VITALS: BP 167/96; PULSE 91; RESP 15; TEMP 36.6; O2SAT 98
[2025-07-28 18:04] VITALS: BP 167/96; PULSE 88; RESP 16; TEMP 36.6; O2SAT 98
== END 2025-07-28 18:05 | disposition home or self-care (01) ==
PROVIDERS: Physician Assistant; Physician Assistant Medical; Emergency Provider Emergency Medicine; PCP Internal Medicine
DX: J10.1 Influenza due to other identified influenza virus with other respiratory manifestations (principal); R07.89 Other chest pain; R05.9 Cough, unspecified; M79.601 Pain in right arm; R06.02 Shortness of breath; Z79.899 Other long term (current) drug therapy; Z11.52 Encounter for screening for COVID-19; Z03.818 Encounter for observation for suspected exposure to other biological agents ruled out
CPT/HCPCS: 36415; 71046; 80053; 83735; 83880; 84484; 85025; 85379; 85610; 85730; 87502; 87635; 93005; 99284; 99285

== ENCOUNTER → 2025-07-28 10:13 | Outpatient (BNV) | payer MEDICARE, MEDICAID, SELFPAY | PROVIDERS: Emergency Provider Emergency Medicine; PCP Internal Medicine; Visit Provider Internal Medicine Cardiovascular Disease | DX: I44.0 Atrioventricular block, first degree (principal); I51.7 Cardiomegaly; R00.0 Tachycardia, unspecified | CPT/HCPCS: 93010 ==

== ENCOUNTER → 2025-07-28 10:28 | Outpatient (BNV) | payer MEDICARE, MEDICAID, SELFPAY | PROVIDERS: PCP Internal Medicine; Visit Provider Radiology Diagnostic Radiology | DX: R07.89 Other chest pain (principal) | CPT/HCPCS: 71046 ==

== ENCOUNTER 2025-08-10 10:28 | Outpatient (AMB) | payer MEDICARE, MEDICAID, SELFPAY ==
--- NOTE | 2025-08-10 11:20 | MHC.PC.OV ---
Vital Signs 08/10/25 11:34 Height 5 ft 7 in Weight 161 lb BMI 25.2 BP 132/84 Blood Pressure Location Lt brachial Position Sitting Respiration 16 Pulse 98 Pulse Source Pulse Oximeter Temp 98.1 F Temp Source Oral Pulse Oximetry (%) 99 Oxygen Delivery Method Room Air Intake Visit Reasons: follow up Intake Note: Pt is here today for his lab results f/u Director Pharmacovigilance Required: No Allergies No Known Allergies Allergy (Verified 08/10/25 11:51) Medication List - Last Reconciled 08/10/25 by Atiya Joseph MD amlodipine 10 mg PO DAILY blood pressure test kit-medium As directed to monitor BP at home blood-glucose meter (FreeStyle Brea Lite kit) Check blood sugar once per day clotrimazole 1% (Antifungal (clotrimazole)) 1 appl topical BID 4 weeks FreeStyle Lite Strips (blood sugar diagnostic) Test blood sugar once a day before meals NS glipizide 10 mg PO BID lancets (FreeStyle Lancets) Test blood sugar twice a day lisinopril 20 mg PO DAILY metformin 1,000 mg PO BIDWMEAL Mounjaro (tirzepatide) 2.5 mg (0.5 mL) subcut QWEEK 30 days NS naproxen 500 mg PO Q12H PRN Tobacco use date assessed: 08/10/25 Last assessed Fall Risk: 08/10/25 Dental Screening Dental Screen Date: 08/10/25 Did you have a dental visit in the last 12 months?: No Did you have a dental problem in the last 6 months where you did not have access to dental care?: No Was dental information given to patient?: Patient declined HPI follow up HPI Details 75-year-old male with history of diabetes mellitus with neuropathy, hypertension, here today for follow-up. Currently takes metformin 1000 mg twice a day and glipizide 10 mg twice a day with meals, with latest hemoglobin A1c at 9.4%. He was i please on Mounjaro 2.5 mg injected once a week on his last visit here 06/22/2025 but patient only took 1 month of it and did not refill prescription. Hypertension is better controlled on amlodipine 10 mg daily and lisinopril 20 mg once a day. He is now being followed by [facility] who is treating him for his neuropathy and tinea unguium and nail dystrophy Recent fasting labs showed mild anemia with hemoglobin/ hematocrit of 12.4 and 41% , normal electrolytes and renal function and GFR and liver enzymes He was recently seen at emergency room and treated for influenza, now recovered.. 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 Anemia Peripheral neuropathy Normocalcemic primary hyperparathyroidism Essential hypertension Diabetes mellitus with hyperglycemia, without long-term current use of insulin Surgical History No pertinent past surgical history Social History Housing: Apartment Alcohol intake: never Patient Tobacco Use Status: Never used Tobacco e-Cigarette/Vaping Use: Never Used Second Hand Smoke Exposure: No service: No Current occupational status: employed Cognitive needs: No Hearing needs: No Vision needs: No Questionnaire PHQ-9 Over the last 2 weeks, how often have you been bothered by any of the following problems? Depression Screening Interpretation: Negative Depression Screening Done: Yes Source: Developed by Drs. Mark Nichols, Eloisa Campos, Dalton Mcbride and colleagues, with an educational oswald from [employer]. Thrive Questionnaire Date Thrive assessed: 12/21/24 I am a: Patient What is your living situation today?: I have a steady place to live Within the past 12 months, did the food you bought not last and you didn't have the money to get more?: Never true Within the past 12 months, did you worry whether your food would run out before you got money to buy more?: Never true Do you have trouble paying for medicines?: No Do you have trouble getting transportation to medical appointments?: No Do you have trouble paying your heating and electricity bill?: No Do you have trouble taking care of your child, family member or friend?: No Do you have trouble with day-to-day activities such as bathing, preparing meals, shopping, managing finances, etc.?: No Are you currently unemployed and looking for a job?: No Are you interested in more education?: No THRIVE Score: 0 AUDIT C Alcohol Use Questionnaire (AUDIT-C) 1. How often do you have a drink containing alcohol?: Never Total Score: 0 LUZMARIA-7 AMB Questionnaire LUZMARIA-7 Date LUZMARIA - 7 assessed: 12/21/24 Feeling nervous, anxious, or on edge: 0 = Not at all Not being able to stop or control worryin = Not at all Worrying too much about different things: 0 = Not at all Trouble relaxin = Not at all Being so restless that it is hard to sit still: 0 = Not at all Becoming easily annoyed or irritable: 0 = Not at all Feeling afraid as if something awful might happen: 0 = Not at all Total LUZMARIA-7 score (0-4 normal; 5-9 mild; 10-14 moderate; 15-21 severe): 0 Source: Developed by Drs. Mark Nichols, Eloisa Campos, Dalton Mcbride and colleagues, with an educational oswald from [employer]. Review of Systems Const Denies fever(s), Denies headache(s) and Denies weakness Eyes Denies change in vision ENT Denies dizziness and Denies headache(s) Card Denies chest pain, Denies lightheadedness, Denies dyspnea and Denies dyspnea on exertion Resp Denies cough, Denies dyspnea and Denies dyspnea on exertion GI Denies abdominal pain, Denies melena, Denies hematochezia, Denies change in bowel habits and Denies heartburn Reports no additional complaints Musc Reports no additional complaints Skin/Breast Denies lesions Neuro Denies dizziness, Denies headache(s), Denies Sensory deficit (Neuro), Reports paresthesias (Intermittent in toes of both feet) and Denies weakness Psych Reports no additional complaints Endo Reports polydipsia and Reports polyuria Ash/Lymph Reports no additional complaints Aller/Immun Reports no additional complaints Physical exam (Primary Care) Vital Signs: Last Vital Signs Temp 98.1 F 08/10/25 11:34 Pulse 98 08/10/25 11:34 Resp 16 08/10/25 11:34 BP 132/84 08/10/25 11:34 Pulse Ox 99 08/10/25 11:34 Oxygen Delivery Method Room Air 08/10/25 11:34 BMI result Body Mass Index 25.2 Tobacco/Smoking Status: Tobacco use Status Tobacco use date assessed 08/10/25 08/10/25 11:24 Patient Tobacco Use Status Never used Tobacco 08/10/25 11:24 e-Cigarette/Vaping Use Never Used 08/10/25 11:24 Depression Screening Interpretation: Negative Thrive Assessment: Date of Thrive Assessment Date Thrive assessed 12/21/24 08/10/25 11:24 Const General: comfortable and no acute distress Orientation/consciousness: patient oriented x3 HENMT Ears: external ears normal General nose exam: Normal external nose present Mouth: Normal oral and palatal mucosa present and moist mucous membranes Eyes General: appearance normal, both eyes and all related structures Neck Neck: Yes full ROM, Yes no lymphadenopathy and Yes supple Resp Effort & Inspection: normal respiratory effort and able to speak in complete sentences Auscultation: clear to auscultation bilaterally Cardio Rate: regular rate Rhythm: regular rhythm Heart sounds: S1 normal heart sound present and S2 normal heart sound present GI Inspection: Yes normal to inspection Palpation (GI): Soft to palpation, nontender and no masses Auscultation: normal bowel sounds General: Yes no CVA tenderness Back/Spine/Pelvis Back: no CVA tenderness and No back tenderness Skin General skin exam: no rashes or lesions noted Nails: yellow and thickened (Toenails in both feet) Neuro General: patient oriented x3, gait normal, tone normal, moves all extremities, Normal light touch and pain sensation, no focal motor deficits and decrease sensation to monofilament Sensory Exam: No Sensory deficit (Neuro) Extrem General: Yes no joint enlargement, Yes no pedal edema and Yes normal gait Psych Appearance: grossly normal Mental Status: mental status grossly normal Speech and movement: Normal speech and movement present Affect: normal affect Results Reviewed Results Reviewed: Name: Martin Whittaker Age/Sex: 75/M : 1950 Unit#: [id number] Attend Dr: Ashwini Brunner DO Re07/28/25 Status: [facility]: SPEC : [id number] TRACI: 07/28/25 STATUS: COMP REQ : [id number] RECD: 07/28/[address]: Barbara Red COMP: 07/28/25 ENTERED: 07/28/[address]: Atiya Joseph MD ORDERED: CBC Auto Diff Test Result Flag Reference WBC 5.5 4.8-10.8 X10*3/uL RBC 5.42 4.60-5.80 X10*6/uL HGB 12.4 L 14.0-18.0 g/dl HCT 41.0 L 42.0-52.0 % MCV 75.6 L 80.0-98.0 fL MCH 22.9 L 27.0-33.0 pg MCHC 30.2 L 31.0-36.0 g/dl RDW 14.1 11.0-16.0 % PLT 205 160-400 X10*3/uL MPV 10.3 9.4-12.4 fL Neut Pct Auto 47.2 45-73 % ImGran Pct Auto 0.2 0.0-0.4 % Lymp Pct Auto 39.4 20-40 % Costilla Pct Auto 10.3 2-11 % Eos Pct Auto 2.7 0-4 % Baso Pct Auto 0.2 0-2 % NRBC Pct Auto 0.0 0.0-0.2 /100WBC ANC Neut Abs # 2.6 2.0-8.3 x10*3/uL ImGran Abs Auto 0.01 0.00-0.03 X10*3/uL Lymph Abs Auto 2.2 1.2-4.9 X10*3/uL Costilla Abs Auto 0.6 0.1-1.2 X10*3/uL Eos Abs Auto 0.2 0.0-0.4 X10*3/uL Baso Abs Auto 0.0 0.0-0.2 X10*3/uL NRBC Abs Auto 0.000 0.0-0.012 X10*3/uL Name: Martin Whittaker Age/Sex: 75/M : 1950 Unit#: [id number] Attend Dr: Ashwini Brunner DO Re07/28/25 Status: DEP ER Location: [facility] Disch: SPEC : [id number] TRACI: 07/28/25 STATUS: COMP REQ : [id number] RECD: 07/28/[address] [facility] [address]: Barbara Red COMP: 07/28/25-1136 ENTERED: 07/28/25-[address]: Atiya Joseph MD ORDERED: CMP, MG Test Result Flag Reference Sodium 137 135-145 mmol/L Potassium 4.4 3.3-5.1 mmol/L CL 107 96-108 mmol/L CO2 26 22-29 mmol/L Gap 8 L 12-20 BUN 16 9-16 mg/dL Creat 1.05 0.5-1.4 mg/dL Estimated CrCl 58.5 eGFR (calculated from the MDRD study equation) and eCrCl (calculated from the Cockcroft-Gault equation) are based on different parameters and may not yield comparable results. If eCrCl result is absurd, please check patient's height/weight. eGFR > 60 Chronic Kidney Disease: Estimated GFR < 60 mL/min/1.73m2 Severe Kidney Disease: Estimated GFR < 15 mL/min/1.73m2 Glucose, Random 254 H 60-115 mg/dL CA 10.2 # 8.4-10.2 mg/dL Magnesium 1.9 1.6-2.6 mg/dL Total Bili 0.3 0.0-1.0 mg/dL AST (GOT) 21 5-37 U/L ALT (GPT) 22 0-40 U/L Protein, Total 7.5 6.5-8.0 g/dL Alb 4.2 3.5-5.0 g/dL Alk Phos 103 39-117 U/L Laboratory Tests 06/16/25 07:30 Hemoglobin A1c % 12.1 H Calcium 9.4 D Coding Level of Care Code Est Pt Level 4 (19291) Complex EM visit Add On G2211 Diagnoses Uncontrolled type 2 diabetes mellitus with hyperglycemia E11.65 Diabetes mellitus type: type 2 Essential hypertension I10 Anemia D64.9 Diabetic peripheral neuropathy associated with type 2 diabetes mellitus E11.42 Assessment & Plan Assessment & Plan (1) Uncontrolled diabetes mellitus with hyperglycemia: Code(s): E11.65 - Type 2 diabetes mellitus with hyperglycemia Category: Medical Qualifiers: Diabetes mellitus type: type 2 Qualified Code(s): E11.65 - Type 2 diabetes mellitus with hyperglycemia Plan: Continued on metformin and glipizide at same dose. Restarted back on Mounjaro 2.5 mg injected once a week. Discussed again proper use of medication, and papules possible side effects which may include abdominal cramps, bloating, constipation, nausea. Have a bland diet on the day of his injection, to avoid nausea. Discuss other possible side effects which may include sudden vision loss, increased risk for gallstones, and pancreatitis. (2) Essential hypertension: Code(s): I10 - Essential (primary) hypertension Category: Medical Plan: Blood pressure at goal of less than 130/80. Continue with lisinopril and amlodipine at the same dose. Reinforced importance of following a low sodium diet, getting regular exercise, and lowering stress levels. (3) Anemia: Code(s): D64.9 - Anemia, unspecified Category: Medical Plan: Referred to [facility] clinic for his colonoscopy screening. Started on ferrous sulfate 325 mg to take once a day with food. Repeat CBC iron profile in 3 months. (4) Diabetic peripheral neuropathy associated with type 2 diabetes mellitus: Code(s): E11.42 - Type 2 diabetes mellitus with diabetic polyneuropathy Category: Medical Plan: Followed by [facility] podiatry, continued on metformin and glipizide, and restarted back on Mounjaro. Check fasting glucose at least twice a day and keep a record of the readings. Bring to next appointment for review. Reminded to get his diabetes eye exam scheduled at [facility], currently being followed by Podiatry Orders: Orders Ferritin 09/16/25 D64.9 - Anemia, unspecified Referrals Gastroenterology Referral D64.9 - Anemia, unspecified, Z12.11 - Encounter for screening for malignant neoplasm of colon Medications: New metformin 1,000 mg PO BIDWMEAL 60 tabs 5RF ferrous sulfate 325 mg PO DAILY 90 tabs 0RF Refilled Mounjaro (tirzepatide) for 4 weeks 2.5 mg (0.5 mL) subcut QWEEK 2 mL 3RF 30 days NS E11.65 - Type 2 diabetes mellitus with hyperglycemia, G62.9 - Polyneuropathy, unspecified, I10 - Essential (primary) hypertension lisinopril 20 mg PO DAILY 90 tabs 4RF amlodipine take in afternoon at around 3 pm 10 mg PO DAILY 90 tabs 4RF
[2025-08-10 11:34] VITALS: BP 132/84; PULSE 98; RESP 16; TEMP 36.7; O2SAT 99; BMI 25.2
--- OUTSIDE RECORDS SUMMARY | 2025-08-10 13:16 | XMS_ITS | Clinical Summary ---
Author Organization [facility] Facility Address [address] [place] [address], [place] [address] Care Team Providers Care Change Consultant Name Role Phone Heath Joseph MD Primary Care Provider [phone] Social History Tobacco Use Types Packs/Day Years [...] complete this topic Insurance [address] [place] [address] [place] [address] [place] [address] [place] Care Teams Change Consultant Relationship Specialty Start Date End Date Heath Joseph MD [address] [place] [id number] PCP - General Internal Medicine 01/07/23
== END 2025-08-10 12:06 | disposition home or self-care (01) ==
LOC: HO.HMCC 10:29
PROVIDERS: PCP Internal Medicine; Visit Provider Internal Medicine
DX: E11.65 Type 2 diabetes mellitus with hyperglycemia (principal); I10 Essential (primary) hypertension; D64.9 Anemia, unspecified; E11.42 Type 2 diabetes mellitus with diabetic polyneuropathy

== ENCOUNTER → 2025-08-10 10:28 | Outpatient (BNVA) | payer MEDICARE, MEDICAID, SELFPAY | PROVIDERS: PCP Internal Medicine; Visit Provider Internal Medicine | DX: E11.65 Type 2 diabetes mellitus with hyperglycemia (principal); I10 Essential (primary) hypertension; D64.9 Anemia, unspecified; E11.42 Type 2 diabetes mellitus with diabetic polyneuropathy | CPT/HCPCS: 99212 ==

== ENCOUNTER 2025-09-08 08:24 | Outpatient (REF) | payer MEDICARE, MEDICAID, SELFPAY ==
[2025-09-08 10:11] LABS: MANUAL DIFF FLAG NO
[2025-09-08 10:20] LABS: Hematocrit 42.8 % (42.0-52.0); Hemoglobin 12.6 g/dl (14.0-18.0); Imm Gran Abs Auto 0.01 X10*3/uL (0.00-0.03); Imm Gran Pct Auto 0.1 % (0.0-0.4); Lymphocytes Absolute Auto 3.6 X10*3/uL (1.2-4.9); Mean Corpuscular HGB Conc 29.4 g/dl (31.0-36.0); Mean Corpuscular Hemoglobin 22.5 pg (27.0-33.0); Mean Corpuscular Volume 76.3 fL (80.0-98.0); NRBC Abs Auto 0.000 X10*3/uL (0.0-0.012); NRBC Pct Auto 0.0 /100WBC (0.0-0.2); Platelet Count 300 X10*3/uL (160-400); Red Blood Count 5.61 X10*6/uL (4.60-5.80); White Blood Count 6.7 X10*3/uL (4.8-10.8)
[2025-09-08 10:46] LABS: Alanine Aminotransferase 18 U/L (0-40); Anion Gap 10 (12-20); Aspartate Amino Transferase 16 U/L (5-37); Blood Urea Nitrogen 12 mg/dL (9-16); Calcium 9.9 mg/dL (8.4-10.2); Carbon Dioxide 27 mmol/L (22-29); Chloride 109 mmol/L (96-108); Estimated Glomerular Filt Rate > 60; Iron 77 mcg/dL (45-160); Percent Iron Saturation 28 % (15-50); Potassium 4.6 mmol/L (3.3-5.1); Sodium 141 mmol/L (135-145); Total Iron Binding Capacity 277 mcg/dL (228-428); Unsaturated Iron Binding 200 ug/dL
[2025-09-08 11:02] LABS: Folate 6.9 ng/mL (> or = 4.0); Vitamin B12 741 pg/mL (200-900)
[2025-09-08 11:04] LABS: Ferritin 106 ng/mL (20-250)
[2025-09-08 11:17] LABS: PSA,Total (Free>4and<10) 2.46 ng/mL (0.00-4.00)
== END 2025-09-08 08:25 | disposition home or self-care (01) ==
LOC: HO.HMGCLDS 08:24
PROVIDERS: PCP Internal Medicine; Visit Provider Internal Medicine
DX: E11.65 Type 2 diabetes mellitus with hyperglycemia (principal); E11.40 Type 2 diabetes mellitus with diabetic neuropathy, unspecified; Z12.5 Encounter for screening for malignant neoplasm of prostate; D64.9 Anemia, unspecified; I10 Essential (primary) hypertension; Z13.29 Encounter for screening for other suspected endocrine disorder
CPT/HCPCS: 36415; 80048; 82306; 82607; 82728; 82746; 83036; 83540; 84153; 84443; 84450; 84460; 85025

== ENCOUNTER 2025-09-18 11:33 | Outpatient (AMB) | payer MEDICARE, MEDICAID, SELFPAY ==
--- NOTE | 2025-09-18 11:43 | A.OFFVIS_ITS ---
Vital Signs 09/18/25 11:44 Height 5 ft 7 in Weight 161 lb BMI 25.2 Intake Visit Reasons: Follow Up Diabetic foot care/ Bilateral Intake Note: Martin is a 75 year old male who presents today for a follow up on his tinea unguium. During his last visit he was prescribed Ciclopirox. Patient reports he has been using the medication and has seen Allergies No Known Allergies Allergy (Verified 09/18/25 11:45) HPI HPI Follow Up Diabetic foot care/ Bilateral: Details: 75 y/o male past medical history of uncontrolled type 2 diabetes mellitus, hypertension, presents today for 2 month follow up evaluation for diabetic foot evaluation. Has not been applying any topical ointments prescribed last visit. History: Patient states that he has been diabetic for several years, states he is on insulin treatment (A1C 12%). Patient complains of occasional sensations of numbness to his feet, denies burning and tingling. Denies any acute injuries. States he has white discoloration between his toes, has not tried any treatment so far. At present, he denies N/V/F/C/SOB/CP. 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 Anemia Peripheral neuropathy Normocalcemic primary hyperparathyroidism Essential hypertension Diabetes mellitus with hyperglycemia, without long-term current use of insulin Surgical History No pertinent past surgical history Social History Housing: Apartment Alcohol intake: never Patient Tobacco Use Status: Never used Tobacco e-Cigarette/Vaping Use: Never Used Second Hand Smoke Exposure: No service: No Current occupational status: employed Cognitive needs: No Hearing needs: No Vision needs: No Review of Systems Const All systems reviewed & are unremarkable except as noted in HPI and below Physical Exam Vital Signs: BMI result Body Mass Index 25.2 Extrem Other: *Bilateral Lower Extremity Focused Exam Vascular: DP/PT 2/4 bilaterally, CFT<3s to digits, TG warm to cool, no pedal edema Derm: No open lesions, ulcerations, or calluses. No erythema or fissures. Interdigital maceration with dry white discoloration to 3rd interspace bilaterally, no underlying wound. Nails: Thickened, discolored toenails x10 with subungual debris. Neuro: [place]view-prasad monofilament (10g) test - intact to all sites 10/10 Right foot, intact to 7/10 sites L foot (deficient at L hallux, 3rd, and 5th toes). MSK: No evidence of hammertoes, bunions, Charcot changes, or other structural abnormalities. Gait: Normal, no antalgic or steppage gait. Assessment & Plan Assessment & Plan (1) Diabetic peripheral neuropathy associated with type 2 diabetes mellitus: Code(s): E11.42 - Type 2 diabetes mellitus with diabetic polyneuropathy Category: Medical Plan: * Educated patient on lower extremity risks due to Diabetes mellitus, including but not limited to: ulceration, infection, neuropathy, neuropathic fractures, and amputation. * Instructed patient to assess his feet daily for foreign bodies, ulcers, calluses, and infections. * Instructed patient to moisturize daily. * Educated patient with his A1C >12%, he is at dangerous risk of infection and complications from pedal injury. Instructed patient on importance of glycemic control and meeting his A1C goal, to be worked on with his PCP and Director Ship. (2) Dystrophia unguium: Code(s): L60.3 - Nail dystrophy Category: Medical Plan: * Debrided elongated thickened diabetic nails x10 using sterile nail nipper. Patient tolerated the procedure well with no complications. * Follow up in 9 weeks. 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 Plan As per assessment & plan section. 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
[2025-09-18 11:44] VITALS: BMI 25.2
== END 2025-09-18 11:56 | disposition home or self-care (01) ==
LOC: HO.HPODS 11:33
PROVIDERS: PCP Internal Medicine; Visit Provider Student in an Organized Health Care Education/Training Program
DX: E11.42 Type 2 diabetes mellitus with diabetic polyneuropathy (principal); L60.3 Nail dystrophy; B35.9 Dermatophytosis, unspecified
CPT/HCPCS: 99213

== ENCOUNTER → 2025-09-18 11:33 | Outpatient (BNVA) | payer MEDICARE, MEDICAID, SELFPAY | PROVIDERS: PCP Internal Medicine; Visit Provider Student in an Organized Health Care Education/Training Program | DX: E11.42 Type 2 diabetes mellitus with diabetic polyneuropathy (principal); L60.3 Nail dystrophy; B35.9 Dermatophytosis, unspecified | CPT/HCPCS: 99212 ==

== ENCOUNTER 2025-09-25 10:49 | Outpatient (AMB) | payer MEDICARE, MEDICAID, SELFPAY ==
--- NOTE | 2025-09-25 11:17 | MHC.PC.OV ---
Vital Signs 09/25/25 11:19 Height 5 ft 7 in Weight 160 lb BMI 25.1 BP 130/80 Blood Pressure Location Lt brachial Position Sitting Respiration 16 Pulse 100 Pulse Source Pulse Oximeter Temp 98.5 F Temp Source Oral Pulse Oximetry (%) 100 Oxygen Delivery Method Room Air Intake Visit Reasons: ffup dm after labs done Intake Note: Pt is here today for his DM f/u Physical Therapy Aides Teacher Required: No Allergies No Known Allergies Allergy (Verified 09/25/25 11:31) Medication List - Last Reconciled 09/25/25 by Atiya Joseph MD amlodipine 10 mg PO DAILY blood pressure test kit-medium As directed to monitor BP at home blood-glucose meter (FreeStyle [place] Lite kit) Check blood sugar once per day clotrimazole 1% 1 appl topical BID 4 weeks ferrous sulfate 325 mg PO DAILY FreeStyle Lite Strips (blood sugar diagnostic) Test blood sugar once a day before meals NS glipizide 10 mg PO BID lancets (FreeStyle Lancets) Test blood sugar twice a day lisinopril 20 mg PO DAILY metformin 1,000 mg PO BIDWMEAL Mounjaro (tirzepatide) 2.5 mg (0.5 mL) subcut QWEEK 30 days NS naproxen 500 mg PO Q12H PRN Tobacco use date assessed: 09/25/25 Fall risk assessment: No Falls in past year Last assessed Fall Risk: 09/25/25 Dental Screening Dental Screen Date: 08/10/25 HPI ffup dm after labs done HPI Details 75 y/o male past medical history of uncontrolled type 2 diabetes mellitus, hypertension, presents today for follow-up on his hypertension and diabetes. He is currently taking amlodipine 10 mg once a day and lisinopril 20 mg once a day for blood pressure control, blood pressure still not at goal of less than 130/80. Denies any chest pain, no headache or lightheadedness His diabetes control is has improved, with hemoglobin A1c down from 12.1 now to 8.6%. 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 Dystrophia unguium Anemia Peripheral neuropathy Normocalcemic primary hyperparathyroidism Essential hypertension Diabetes mellitus with hyperglycemia, without long-term current use of insulin Surgical History No pertinent past surgical history Social History Housing: Apartment Alcohol intake: never Patient Tobacco Use Status: Never used Tobacco e-Cigarette/Vaping Use: Never Used Second Hand Smoke Exposure: No service: No Current occupational status: employed Cognitive needs: No Hearing needs: No Vision needs: No Questionnaire Thrive Questionnaire Date Thrive assessed: 12/21/24 LUZMARIA-7 AMB Questionnaire LUZMARIA-7 Date LUZMARIA - 7 assessed: 12/21/24 Source: Developed by Drs. Mark Nichols, Eloisa Campos, Dalton Mcbride and colleagues, with an educational oswald from [employer]. Physical exam (Primary Care) Vital Signs: Last Vital Signs Temp 98.5 F 09/25/25 11:19 Pulse 100 09/25/25 11:19 Resp 16 09/25/25 11:19 BP 130/80 09/25/25 11:19 Pulse Ox 100 09/25/25 11:19 Oxygen Delivery Method Room Air 09/25/25 11:19 BMI result Body Mass Index 25.1 Tobacco/Smoking Status: Tobacco use Status Tobacco use date assessed 09/25/25 09/25/25 11:20 Patient Tobacco Use Status Never used Tobacco 09/25/25 11:20 e-Cigarette/Vaping Use Never Used 09/25/25 11:20 Thrive Assessment: Date of Thrive Assessment Date Thrive assessed 12/21/24 09/25/25 11:20 Immunizations Boostrix Tdap 2.5 Lf unit-8 mcg-5 Lf/0.5 mL intramuscular syringe Performing Provider: Atiya Joseph MD Performing Location[facility] Administered by: Tonia Goins CMA on 09/25/25 12:07 Dose Route Admin Location Dispensed Lot Number Expiration Date [facility] Head Loft Worker 0.5 mL IM Left Deltoid 0.5 mL [id number] 05/13/28 [id number] [employer] Total Dispensed Waste 0.5 mL 0 % VIS Given Date VIS Provided VIS Publication Date 09/25/25 Single Vaccine 21 Eligibility Eligibility Date Funding Source Not [facility] Eligible 09/25/25 Private Results Reviewed Results Reviewed: Name: Martin Whittaker Age/Sex: 75/M : 1950 Unit#: [id number] Attend Dr: Atiya Joseph MD Re09/08/25 Status: DEP REF Location: [facility] Disch: SPEC : [id number] TRACI: 09/08/25 STATUS: COMP REQ : [id number] RECD: 09/08/[address]: Atiya Joseph MD COMP: 09/08/25 ENTERED: 09/08/[address]: ORDERED: CBC Auto Diff Test Result Flag Reference WBC 6.7 4.8-10.8 X10*3/uL RBC 5.61 4.60-5.80 X10*6/uL HGB 12.6 L 14.0-18.0 g/dl HCT 42.8 42.0-52.0 % MCV 76.3 L 80.0-98.0 fL MCH 22.5 L 27.0-33.0 pg MCHC 29.4 L 31.0-36.0 g/dl RDW 14.6 11.0-16.0 % PLT 300 # 160-400 X10*3/uL MPV 10.6 9.4-12.4 fL Neut Pct Auto 36.1 L 45-73 % ImGran Pct Auto 0.1 0.0-0.4 % Lymp Pct Auto 53.7 H 20-40 % Reagan Pct Auto 7.7 2-11 % Eos Pct Auto 2.1 0-4 % Baso Pct Auto 0.3 0-2 % NRBC Pct Auto 0.0 0.0-0.2 /100WBC ANC Neut Abs # 2.4 2.0-8.3 x10*3/uL ImGran Abs Auto 0.01 0.00-0.03 X10*3/uL Lymph Abs Auto 3.6 1.2-4.9 X10*3/uL Reagan Abs Auto 0.5 0.1-1.2 X10*3/uL Eos Abs Auto 0.1 0.0-0.4 X10*3/uL Baso Abs Auto 0.0 0.0-0.2 X10*3/uL NRBC Abs Auto 0.000 0.0-0.012 X10*3/uL Laboratory Tests 06/16/25 09/08/25 07:30 09:01 Estimat Average Glucose 200 Hemoglobin A1c % 8.6 H Urine Creatinine 39.88 Urine Microalbumin 10.0 Microalb/Creat Ratio 25.0 Coding Level of Care Code Est Pt Level 4 (24972) Complex EM visit Add On G2211 Diagnoses Type 2 diabetes mellitus with hyperglycemia, without long-term current use of insulin E11.65 Diabetes mellitus type: type 2 Essential hypertension I10 Anemia, unspecified type D64.9 Anemia type: unspecified type Assessment & Plan Assessment & Plan (1) Diabetes mellitus with hyperglycemia, without long-term current use of insulin: Code(s): E11.65 - Type 2 diabetes mellitus with hyperglycemia Category: Medical Qualifiers: Diabetes mellitus type: type 2 Qualified Code(s): E11.65 - Type 2 diabetes mellitus with hyperglycemia Plan: Improvement in his diabetes control noted with hemoglobin A1c down from 12 point 8. 6 %.. Continued on metformin 1000 mg 1 tablet twice a day and increase Mounjaro dose to 5 mg injected subcutaneously once a week. Discontinue glipizide. Adherence to healthy eating habits and regular exercise again emphasized. Follows with podiatry for his neuropathy. Will see him back for follow-up in 3 months after fasting labs done (2) Essential hypertension: Code(s): I10 - Essential (primary) hypertension Category: Medical Plan: Blood pressure at goal of less than 130/80. Continue with amlodipine and lisinopril at the same dose. Reinforced importance of following a low sodium diet, getting regular exercise, and lowering stress levels. (3) Anemia: Code(s): D64.9 - Anemia, unspecified Category: Medical Qualifiers: Anemia type: unspecified type Qualified Code(s): D64.9 - Anemia, unspecified Plan: Continue ferrous sulfate 325 mg once a day, repeat another CBC and iron profile in December 2019 Orders: Orders Hemoglobin A1c 12/17/25 D64.9 - Anemia, unspecified, E11.65 - Type 2 diabetes mellitus with hyperglycemia, I10 - Essential (primary) hypertension Basic Metabolic Panel Fasting 12/17/25 D64.9 - Anemia, unspecified, E11.65 - Type 2 diabetes mellitus with hyperglycemia, I10 - Essential (primary) hypertension Alanine Aminotransferase 12/17/25 D64.9 - Anemia, unspecified, E11.65 - Type 2 diabetes mellitus with hyperglycemia, I10 - Essential (primary) hypertension Lipid Panel 12/17/25 D64.9 - Anemia, unspecified, E11.65 - Type 2 diabetes mellitus with hyperglycemia, I10 - Essential (primary) hypertension IRON PROFILE 3 Months D64.9 - Anemia, unspecified Complete Blood Count Auto Diff 12/17/25 D64.9 - Anemia, unspecified, E11.65 - Type 2 diabetes mellitus with hyperglycemia, I10 - Essential (primary) hypertension Aspartate Amino Transferase 12/17/25 D64.9 - Anemia, unspecified, E11.65 - Type 2 diabetes mellitus with hyperglycemia, I10 - Essential (primary) hypertension Microalbumin, Random (w Creat) 12/17/25 D64.9 - Anemia, unspecified, E11.65 - Type 2 diabetes mellitus with hyperglycemia, I10 - Essential (primary) hypertension TDaP Immunization Today Z23 - Encounter for immunization Medications: New alcohol swabs (Alcohol Pads) 1 pad topical BID 200 ea 3RF 3 months Changed From Mounjaro (tirzepatide) for 4 weeks 2.5 mg (0.5 mL) subcut QWEEK 30 days 2 mL 3RF NS E11.65 - Type 2 diabetes mellitus with hyperglycemia, G62.9 - Polyneuropathy, unspecified, I10 - Essential (primary) hypertension To Mounjaro (tirzepatide) 5 mg (0.5 mL) subcut QWEEK 30 days 2 mL 5RF NS E11.65 - Type 2 diabetes mellitus with hyperglycemia, G62.9 - Polyneuropathy, unspecified, I10 - Essential (primary) hypertension Refilled Mounjaro (tirzepatide) 5 mg (0.5 mL) subcut QWEEK 2 mL 5RF 30 days NS E11.65 - Type 2 diabetes mellitus with hyperglycemia, G62.9 - Polyneuropathy, unspecified, I10 - Essential (primary) hypertension Discontinued glipizide Discontinued Reason: Doctor's Order 10 mg PO BID 60 tabs 0RF
[2025-09-25 11:19] VITALS: BP 130/80; PULSE 100; RESP 16; TEMP 36.9; O2SAT 100; BMI 25.1
--- OUTSIDE RECORDS SUMMARY | 2025-09-25 12:54 | XMS_ITS | Clinical Summary ---
Author Organization [facility] Facility Address [address] [place] [address], [place] [address] Care Team Providers Care Department Chairperson Name Role Phone Heath Joseph MD Primary Care Provider [phone] Social History Tobacco Use Types Packs/Day Years [...] topic Insurance [address] [place] [address] [place] [address] [place] Care Teams Department Chairperson Relationship Specialty Start Date End Date Heath Joseph MD [address] [place] [id number] PCP - General Internal Medicine 01/07/23
== END 2025-09-25 14:52 | disposition home or self-care (01) ==
LOC: HO.HMCC 10:49
PROVIDERS: PCP Internal Medicine; Visit Provider Internal Medicine
DX: Z23 Encounter for immunization (principal)

== ENCOUNTER → 2025-09-25 10:49 | Outpatient (BNVA) | payer MEDICARE, MEDICAID, SELFPAY | PROVIDERS: PCP Internal Medicine; Visit Provider Internal Medicine | DX: Z71.2 Person consulting for explanation of examination or test findings (principal); I10 Essential (primary) hypertension; E11.65 Type 2 diabetes mellitus with hyperglycemia; D64.9 Anemia, unspecified; G62.9 Polyneuropathy, unspecified; Z23 Encounter for immunization | CPT/HCPCS: 90471; 90715; 99212 ==

== ENCOUNTER 2025-10-24 14:16 | Outpatient (AMB) | payer OTHER, MEDICARE, MEDICAID, SELFPAY ==
[2025-10-24 14:27] VITALS: BP 120/84; PULSE 105; RESP 16; TEMP 36.4; O2SAT 100; BMI 24.0
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
== END 2025-10-24 15:26 | disposition home or self-care (01) ==
PROVIDERS: PCP Internal Medicine; Visit Provider Internal Medicine
DX: M54.50 Low back pain, unspecified (principal); G89.29 Other chronic pain; Z87.828 Personal history of other (healed) physical injury and trauma